=== PATIENT | male | born 1950 | race Caucasian/White ===

== ENCOUNTER 2018-01-20 08:25 | Day surgery (SDC) | payer MEDICARE, BC ==
[~2018-01-20 08:25] MED LIST: KETOROLAC TROMETHAMINE 0.45% 4 DROP/0.4 ML DROPERETTE OS PRN
[2018-01-20] MEDS: TETRACAINE HCL 0.5% OPH SOLN 0.6 ML DROPERETTE OS PRN ×4 (09:18→09:58)
[2018-01-20] MEDS: CYCLOPENTOLATE 0.2%/PHENYLEPHRINE 1% OPH SOLN 2 ML OS PRN ×3 (09:19→09:44)
[2018-01-20] MEDS: TROPICAMIDE 1% OPH SOLN 3 ML OS PRN ×3 (09:19→09:44)
[2018-01-20] MEDS: BESIFLOXACIN HCL 0.6% OPH SUSP 5 ML BOTTLE OS PRN ×4 (09:20→10:19)
[2018-01-20] MEDS ORDERED: ALBUTEROL SULFATE 0.083% NEB 2.5 MG/3 ML AMPUL NEB ONE (09:41)
[2018-01-20] MEDS ORDERED: FENTANYL CITRATE INJ/PF 100 MCG/2 ML AMPUL ONE (09:42)
[2018-01-20] MEDS ORDERED: MIDAZOLAM 2 MG/2 ML INJ ONE (09:42)
[2018-01-20] MEDS: LIDOCAINE 1% INJ-PF (10 MG/ML) 30 ML SDV ONE ×2 (10:08)
[2018-01-20] MEDS: CHONDR SU A NA/HYALUR INTRAOC KIT (SURGICARE) ONE ×2 (10:08)
[2018-01-20] MEDS: EPINEPHRINE INJ/PF 1 MG/1 ML AMPULE ONE ×2 (10:08)
[2018-01-20] MEDS: TOBRAMYCIN SULFATE/DEXAMETH OPH OINTMENT 3.5 GM ONE ×2 (10:19)
== END 2018-01-20 11:07 | disposition home or self-care (01) ==
LOC: SC 08:25
PROVIDERS: ATTEND Ophthalmology
DX: H25.12 Age-related nuclear cataract, left eye (principal); F17.210 Nicotine dependence, cigarettes, uncomplicated; M19.90 Unspecified osteoarthritis, unspecified site; I10 Essential (primary) hypertension; E11.9 Type 2 diabetes mellitus without complications; G47.30 Sleep apnea, unspecified; Z86.14 Personal history of Methicillin resistant Staphylococcus aureus infection; Z79.899 Other long term (current) drug therapy; Z79.84 Long term (current) use of oral hypoglycemic drugs
CPT/HCPCS: 82962; V2630; J2250; J3490 ×3; A9270 ×2; J0171; J3010; 142

== ENCOUNTER 2018-03-22 10:30 | Day surgery (SDC) | payer MEDICARE, BC ==
[~2018-03-22 10:30] MED LIST changes: -KETOROLAC TROMETHAMINE 0.45% 4 DROP/0.4 ML DROPERETTE OS PRN; +PROPOFOL INJ 200 MG/20 ML VIAL IV ONE
[2018-03-22] MEDS ORDERED: PROPOFOL INJ 200 MG/20 ML VIAL IV ONE (12:06)
[2018-03-22 12:59] VITALS: BP 132/71
--- NOTE | 2018-03-22 13:42 | Operative Report ---
Operative Report DATE OF SURGERY: 03/22/18 Operative Report: The risks, benefits and alternatives of the procedure including risks of bleeding, perforation requiring surgery are explained to the patient in detail and informed consent was obtained. Patient was taken back to the endoscopy suite and placed in the left, lateral decubital position. Timeout was called. Propofol medications administered. A rectal examination is done which did not reveal any masses, tears or fissures. An Olympus videoscope was inserted into the patient's rectum. The scope was then carefully advanced all the way to the cecum. The cecum was identified by the usual anatomical landmarks including the ileocecal valve as well as the appendiceal office. Photodocumentation was obtained. The patient has a spastic colon. Prep was good. Photodocumentation is obtained. The scope was then sequentially pullback via the various segments of the colon including the ascending colon, hepatic flexure, transverse colon, splenic flexure, descending colon and finally into the rectosigmoid portions of the colon. Retroflexion maneuver is performed. PREOPERATIVE DIAGNOSIS: Personal history of polyps. Has not had a colonoscopy in the past 10 years POSTOPERATIVE DIAGNOSIS: Multiple polyps all removed via snare polypectomy. Internal hemorrhoids. Extended procedure time greater than 45 minutes OPERATION: Colonoscopy with snare polypectomy SURGEON: OLY DOUGLASS ANESTHESIA: LMAC TISSUE REMOVED OR ALTERED: As noted above. COMPLICATIONS: None. ESTIMATED BLOOD LOSS: None. INTRAOPERATIVE FINDINGS: Multiple polyps throughout the colon. Noted to have at least half a dozen polyps in the rectum. Several in sigmoid area. The polyps also present in the descending colon as well as the transverse colon area. Patient has a very spastic colon. PROCEDURE: Patient tolerated procedure well. No immediate postprocedure complications are noted. Patient discharged in good condition. Discharge date 03/22/2018. Discharge diet: Regular. Discharge activity: Regular. 2-3 week follow-up to discuss findings. Patient is instructed to call the office or proceed to the emergency room should there be any further problems or questions. I would recommend a one-year surveillance colonoscopy.
== END 2018-03-22 12:50 | disposition home or self-care (01) ==
LOC: END 10:30
PROVIDERS: ATTEND Internal Medicine Gastroenterology
DX: Z12.11 Encounter for screening for malignant neoplasm of colon (principal); D12.3 Benign neoplasm of transverse colon; D12.4 Benign neoplasm of descending colon; D12.7 Benign neoplasm of rectosigmoid junction; K63.5 Polyp of colon; Z86.010 Personal history of colon polyps; K58.9 Irritable bowel syndrome, unspecified; K64.8 Other hemorrhoids; E11.9 Type 2 diabetes mellitus without complications; E78.5 Hyperlipidemia, unspecified; M19.90 Unspecified osteoarthritis, unspecified site; F17.210 Nicotine dependence, cigarettes, uncomplicated; G47.30 Sleep apnea, unspecified; Z86.14 Personal history of Methicillin resistant Staphylococcus aureus infection; Z79.84 Long term (current) use of oral hypoglycemic drugs; Z79.899 Other long term (current) drug therapy; Z79.51 Long term (current) use of inhaled steroids
CPT/HCPCS: 45385; 82962; 88305 ×2; J2704; 812

== ENCOUNTER 2018-10-03 00:31 | Emergency (ER) | payer MEDICARE, BC ==
[2018-10-03 00:37] VITALS: BP 168/84
[2018-10-03] MEDS ORDERED: KETOROLAC TROMETHAMINE 60 MG/2 ML SDV IM ONE (00:48)
[2018-10-03] MEDS ORDERED: LIDOCAINE 5% (700 MG) TRANSDERMAL ADH..PATCH TP ONE (00:48)
[2018-10-03] MEDS ORDERED: ACETAMINOPHEN 325 MG TABLET PO ONE (00:48)
--- NOTE | 2018-10-03 00:59 | ER Document Report ---
ED General - General Chief Complaint: Hip Pain Stated Complaint: LEFT HIP PAIN Time Seen by Provider: 10/03/18 00:44 Notes: Patient is a 68-year-old male who presents with 2 weeks of left hip pain. The patient states for the past several years he has had an mitten of left hip discomfort that usually last for 1-2 days and then spontaneously resolves. He states however that over the past 2 weeks his pain has been persistent. It is described as a dull, throbbing, aching pain to his left hip worsened with walking and standing. He has not trying to improve his pain. No obvious trigger for the episode of pain. He has not seen his general doctor regarding today's concerns. Denies any trauma to the area. No weakness or numbness in the leg. Denies any falls or inability to walk. No recent weight loss. No swelling or erythema to the hip. No fever or constitutional symptoms. TRAVEL OUTSIDE OF THE [place] IN LAST 30 DAYS: No - Related Data Allergies/Adverse Reactions: tamsulosin [Tamsulosin] Allergy (Verified 03/22/18 10:33) URINARY FREQUENCY Past Medical History - General Information source: Patient - Social History Smoking Status: Never Smoker Frequency of alcohol use: None Drug Abuse: None Lives with: Family Family History: DM, Hyperlipidemia, Hypertension - Past Medical History Cardiac Medical History: Reports: Hx Hypertension Denies: Hx Heart Attack Pulmonary Medical History: Reports: Hx COPD Denies: Hx Asthma, Hx Bronchitis, Hx Pneumonia, Hx Tuberculosis Neurological Medical History: Denies: Hx Cerebrovascular Accident, Hx Seizures Endocrine Medical History: Reports: Hx Diabetes Mellitus Type 2 GI Medical History: Denies: Hx Hepatitis, Hx Hiatal Hernia, Hx Ulcer Musculoskeletal Medical History: Reports Hx Musculoskeletal Deformity, Reports Hx Musculoskeletal Trauma Skin Medical History: Reports Hx Cellulitis, Reports Hx MRSA Infectious Medical History: Reports: Hx MRSA. Denies: Hx Hepatitis Past Surgical History: Reports: Hx Orthopedic Surgery - right knee. Denies: Hx Open Heart Surgery, Hx Pacemaker - Immunizations Immunizations up to date: No Hx Diphtheria, Pertussis, Tetanus Vaccination: No Hx Pneumococcal Vaccination: 11/02/16 Review of Systems - Review of Systems Notes: Constitutional: Negative for fever. HENT: Negative for sore throat. Eyes: Negative for visual changes. Cardiovascular: Negative for chest pain. Respiratory: Negative for shortness of breath. Gastrointestinal: Negative for abdominal pain, vomiting or diarrhea. Genitourinary: Negative for dysuria. Musculoskeletal: Positive for left hip pain Skin: Negative for rash. Neurological: Negative for headaches, weakness or numbness. 10 point ROS negative except as marked above and in HPI. Physical Exam - Vital signs Vitals: Temp Pulse Resp BP Pulse Ox 97.6 F 87 22 H 168/84 H 96 10/03/18 00:32 10/03/18 00:32 10/03/18 00:32 10/03/18 00:32 10/03/18 00:32 Interpretation: Hypertensive Notes: PHYSICAL EXAMINATION: GENERAL: Well-appearing, well-nourished and in no acute distress. HEAD: Atraumatic, normocephalic. EYES: Pupils equal round and reactive to light, extraocular movements intact, sclera anicteric, conjunctiva are normal. ENT: nares patent, oropharynx clear without exudates. Moist mucous membranes. NECK: Normal range of motion, supple without lymphadenopathy LUNGS: Breath sounds clear to auscultation bilaterally and equal. No wheezes rales or rhonchi. HEART: Regular rate and rhythm without murmurs ABDOMEN: Soft, nontender, normoactive bowel sounds. No guarding, no rebound. No masses appreciated. EXTREMITIES: Normal range of motion, mild pain with external rotation of the left hip but no pain with axial loading or internal rotation left hip. No pitting or edema. No cyanosis. Back: No midline spinal tenderness, step-offs or deformities. NEUROLOGICAL: 5 out of 5 strength both distally and proximally bilateral lower extremities. 2+ patellar reflexes bilaterally. No clonus. Sensation grossly intact in the bilateral lower extremities. Patient is able to ambulate without difficulty. PSYCH: Normal mood, normal affect. SKIN: Warm, Dry, normal turgor, no rashes or lesions noted. Course - Re-evaluation Re-evalutation: 10/03/18 01:03 Patient presents with acute on chronic left hip discomfort. Appears very well on exam, vitals notable only for hypertension. Physical examination is broadly unremarkable with the exception of pain with external rotation of the left hip. X-ray does not show any acute findings. The patient has not had any acute trauma to the area. At this suspect likely chronic arthritic changes versus musculoskeletal strain. I have advised close outpatient follow-up with his primary care physician and possible orthopedic surgery as well. Pain has improved after receiving Toradol and Tylenol here in the emergency department. At this time will discharge with return precautions and follow-up recommendations. Verbal discharge instructions given a the bedside and opportunity for questions given. Medication warnings reviewed. Patient is in agreement with this plan and has verbalized understanding of return precautions and the need for primary care follow-up in the next 24-72 hours. - Vital Signs Vital signs: Temp Pulse Resp BP Pulse Ox 97.6 F 87 22 H 168/84 H 96 10/03/18 00:32 10/03/18 00:32 10/03/18 00:32 10/03/18 00:32 10/03/18 00:32 - Diagnostic Test Radiology reviewed: Image reviewed, Reports reviewed Radiology results interpreted by me: 10/03/18 01:04 Left hip x-ray: No acute fracture or dislocation Discharge - Discharge Clinical Impression: Left hip pain Condition: Good Disposition: HOME, SELF-CARE Additional Instructions: Your x-ray does not show any acute fracture today. You likely have chronic arthritic changes versus a musculoskeletal strain. Take naproxen 500 mg every 12 hours as needed for pain. He may also take Tylenol 1000 mg every 6 hours in addition to naproxen. Continue to apply ice to the area is much your able. Please follow-up with your primary care physician if you do not have improving your symptoms in the next 1-2 weeks. Please return immediately if you develop weakness, numbness, spreading redness from the area, or any other symptoms that are concerning to you. Prescriptions: Naproxen 500 mg PO BID PRN #14 tablet PRN Reason: Referrals: YARON LI PA-C [Primary Care Provider] - Follow up in 3-5 days
--- NOTE | 2018-10-03 01:20 | RADIOLOGY REPORT (SQ) ---
EXAM DESCRIPTION: XR HIP 2 OR MORE VIEWS COMPLETED DATE/TME: 10/03/2018 00:44 CLINICAL HISTORY: 68 years, Male, pain COMPARISON: None. NUMBER OF VIEWS: 3 TECHNIQUE: AP pelvis and frog-leg view left hip LIMITATIONS: None. FINDINGS: Osteopenia. Negative for acute fracture or dislocation. Mild degenerative change of the hips bilaterally. Soft tissues are unremarkable IMPRESSION: Osteopenia with mild degenerative change copyright 2010 [employer]- All Rights Reserved
== END 2018-10-03 01:58 | disposition home or self-care (01) ==
LOC: ER 00:31
DX: M25.552 Pain in left hip (principal); I10 Essential (primary) hypertension; J44.9 Chronic obstructive pulmonary disease, unspecified; E11.9 Type 2 diabetes mellitus without complications; Z86.14 Personal history of Methicillin resistant Staphylococcus aureus infection
CPT/HCPCS: 99283; 96372; 73502; A9270; J1885

== ENCOUNTER 2018-12-27 10:12 | Inpatient (IN) | payer MEDICARE, BC ==
[2018-12-27] MEDS ORDERED: ALBUTEROL SULFATE 0.083% NEB 2.5 MG/3 ML AMPUL NEB ONE (10:34)
[2018-12-27] MEDS ORDERED: IPRATROPIUM/ALBUTEROL 0.5-2.5 MG/3 ML AMPUL NEB ONE (10:34)
[2018-12-27] MEDS ORDERED: PREDNISONE 20 MG TABLET PO ONE (10:35)
--- NOTE | 2018-12-27 10:37 | ER Document Report ---
ED Medical Screen (RME) - General Chief Complaint: Shortness Of Breath Stated Complaint: DIFFICULTY BREATHING Time Seen by Provider: 12/27/18 10:34 Primary Care Provider: YARON LI PA-C [Primary Care Provider] - Follow up as needed Mode of Arrival: Ambulatory Information source: Patient, [facility] Records Notes: 68-year-old male with COPD, diabetes, hypertension presents with 2 weeks of progressively worsening shortness of breath, chest tightness, productive cough with yellow sputum and subjective fever. Patient does continue to smoke. I have greeted and performed a rapid initial assessment of this patient. A comprehensive ED assessment and evaluation of the patient, analysis of test results and completion of medical decision making process we will be contacted by additional ED providers. PHYSICAL EXAMINATION: Vital signs reviewed GENERAL: Well-appearing, well-nourished and in no acute distress. LUNGS: Diminished breath sounds with expiratory wheezing. Musculoskeletal: Normal range of motion NEUROLOGICAL: Normal speech, normal gait. PSYCH: Normal mood, normal affect. SKIN: Warm, Dry, normal turgor, no rashes or lesions noted. TRAVEL OUTSIDE OF THE [place] IN LAST 30 DAYS: No - HPI Onset: Other Onset/Duration: Gradual, Persistent Quality of pain: Other - Chest tightness Associated Symptoms: Cough (productive), Fever, Shortness of breath Exacerbated by: Coughing Relieved by: Denies Similar symptoms previously: Yes Recently seen / treated by doctor: Yes - Related Data Smoking: Cigarettes Frequency of alcohol use: None Drug Abuse: None Allergies/Adverse Reactions: tamsulosin [Tamsulosin] Allergy (Verified 12/27/18 10:14) URINARY FREQUENCY Past Medical History - Social History Chew tobacco use (# tins/day): No Drug Abuse: None - Past Medical History Cardiac Medical History: Reports: Hx Hypertension Denies: Hx Heart Attack Pulmonary Medical History: Reports: Hx COPD Denies: Hx Asthma, Hx Bronchitis, Hx Pneumonia, Hx Tuberculosis Neurological Medical History: Denies: Hx Cerebrovascular Accident, Hx Seizures Endocrine Medical History: Reports: Hx Diabetes Mellitus Type 2 Renal/ Medical History: Denies: Hx Peritoneal Dialysis GI Medical History: Denies: Hx Hepatitis, Hx Hiatal Hernia, Hx Ulcer Musculoskeltal Medical History: Reports Hx Musculoskeletal Deformity, Reports Hx Musculoskeletal Trauma Skin Medical History: Reports Hx Cellulitis, Reports Hx MRSA Infectious Medical History: Reports: Hx MRSA. Denies: Hx Hepatitis Past Surgical History: Reports: Hx Orthopedic Surgery - right knee. Denies: Hx Open Heart Surgery, Hx Pacemaker - Immunizations Immunizations up to date: No Hx Diphtheria, Pertussis, Tetanus Vaccination: No Influenza Administration Date for 08/2017 - 12/2017 Season: 08/02/17 Physical Exam - Vital signs Vitals: Temp Pulse Resp BP Pulse Ox 97.7 F 116 H 22 H 171/81 H 93 12/27/18 10:18 12/27/18 10:18 12/27/18 10:18 12/27/18 10:18 12/27/18 10:18 Course - Vital Signs Vital signs: Temp Pulse Resp BP Pulse Ox 97.7 F 116 H 22 H 171/81 H 93 12/27/18 10:18 12/27/18 10:18 12/27/18 10:18 12/27/18 10:18 12/27/18 10:18 Doctor's Discharge - Discharge Referrals: YARON LI PA-C [Primary Care Provider] - Follow up as needed
--- NOTE | 2018-12-27 10:55 | RADIOLOGY REPORT (SQ) ---
EXAM DESCRIPTION: CHEST 2 VIEWS COMPLETED DATE/TIME: 12/27/2018 10:46 am REASON FOR STUDY: sob COMPARISON: 01/10/2009 EXAM PARAMETERS: NUMBER OF VIEWS: two views TECHNIQUE: Digital Frontal and Lateral radiographic views of the chest acquired. RADIATION DOSE: NA LIMITATIONS: none FINDINGS: LUNGS AND PLEURA: No opacities, masses or pneumothorax. No pleural effusion. MEDIASTINUM AND HILAR STRUCTURES: No masses or contour abnormalities. HEART AND VASCULAR STRUCTURES: Heart normal size. No evidence for failure. BONES: No acute findings. HARDWARE: None in the chest. OTHER: No other significant finding. IMPRESSION: NO ACUTE RADIOGRAPHIC FINDING IN THE CHEST. TECHNICAL DOCUMENTATION: JOB ID: [id number] [employer]- All Rights Reserved Reading location - IP/workstation name: [email or web address]
[2018-12-27 11:15] LABS: ABSOLUTE MONOCYTES (AUTO) 2.3 10^3/uL (0.1-1.4); ABSOLUTE NEUT (AUTO) 16.1 10^3/uL (1.7-8.2); BASOPHILS % (AUTO) 0.2 % (0-2); HEMATOCRIT 54.9 % (37.9-51.0); HEMOGLOBIN 18.5 g/dL (13.5-17.0); LYMPHOCYTES % (AUTO) 5.2 % (13-45); MEAN CORPUSCULAR HGB CONC 33.8 g/dL (32.0-36.0); MEAN CORPUSCULAR VOLUME 92 fl (80-97); MONOCYTES % (AUTO) 11.7 % (3-13); PLATELET COUNT 180 10^3/uL (150-450); RED BLOOD COUNT 5.97 10^6/uL (4.35-5.55); RED CELL DISTRIBUTION WIDTH 14.7 % (11.5-14.0); SEGMENTED NEUTROPHILS % (AUTO) 82.9 % (42-78); TOTAL CELLS COUNTED % (AUTO) 100 %; WHITE BLOOD COUNT 19.4 10^3/uL (4.0-10.5)
[2018-12-27 11:22] LABS: VENOUS BLOOD BASE EXCESS 3.6 mmol/L; VENOUS BLOOD HCO3 32.2 mmol/L (20-32); VENOUS BLOOD PH 7.33 (7.30-7.42)
[2018-12-27 11:39] LABS: ALANINE AMINOTRANSFERASE 14 U/L (21-72); ALBUMIN 4.3 g/dL (3.5-5.0); ALKALINE PHOSPHATASE 101 U/L (38-126); ANION GAP 12 (5-19); ASPARTATE AMINO TRANSFERASE 20 U/L (17-59); BILIRUBIN,TOTAL 1.5 mg/dL (0.2-1.3); BLOOD UREA NITROGEN 22 mg/dL (7-20); CALCIUM 9.5 mg/dL (8.4-10.2); CARBON DIOXIDE 32 mmol/L (22-30); CHLORIDE 100 mmol/L (98-107); GLUCOSE 183 mg/dL (75-110); POTASSIUM 4.1 mmol/L (3.6-5.0); SODIUM 143.5 mmol/L (137-145); TOTAL PROTEIN 7.9 g/dL (6.3-8.2)
--- NOTE | 2018-12-27 13:34 | ER Document Report ---
ED General - General Chief Complaint: Shortness Of Breath Stated Complaint: DIFFICULTY BREATHING Time Seen by Provider: 12/27/18 10:34 Primary Care Provider: YARON LI PA-C [Primary Care Provider] - Follow up as needed Mode of Arrival: Ambulatory TRAVEL OUTSIDE OF THE [place] IN LAST 30 DAYS: No - HPI Notes: Patient presents emergency department for evaluation of cough and difficulty breathing. It has been going on for 2 weeks and his symptoms continue to worsen. He denies any fevers. No nausea or vomiting. He has no pain. He states this all feels like his COPD. He has had some nasal congestion. He has no orthopnea. Mild dyspnea with exertion. He has been using his breathing treatments at home without any significant relief. Is not currently on steroids. - Related Data Allergies/Adverse Reactions: tamsulosin [Tamsulosin] Allergy (Verified 12/27/18 10:14) URINARY FREQUENCY Past Medical History - General Information source: Patient, [facility] Records - Social History Smoking Status: Current Every Day Smoker Chew tobacco use (# tins/day): No Frequency of alcohol use: None Drug Abuse: None Family History: DM, Hyperlipidemia, Hypertension Patient has suicidal ideation: No Patient has homicidal ideation: No - Past Medical History Cardiac Medical History: Reports: Hx Hypertension Denies: Hx Heart Attack Pulmonary Medical History: Reports: Hx COPD Denies: Hx Asthma, Hx Bronchitis, Hx Pneumonia, Hx Tuberculosis Neurological Medical History: Denies: Hx Cerebrovascular Accident, Hx Seizures Endocrine Medical History: Reports: Hx Diabetes Mellitus Type 2 Renal/ Medical History: Denies: Hx Peritoneal Dialysis GI Medical History: Denies: Hx Hepatitis, Hx Hiatal Hernia, Hx Ulcer Musculoskeletal Medical History: Reports Hx Musculoskeletal Deformity, Reports Hx Musculoskeletal Trauma Skin Medical History: Reports Hx Cellulitis, Reports Hx MRSA Infectious Medical History: Reports: Hx MRSA. Denies: Hx Hepatitis Past Surgical History: Reports: Hx Orthopedic Surgery - right knee. Denies: Hx Open Heart Surgery, Hx Pacemaker - Immunizations Immunizations up to date: No Hx Diphtheria, Pertussis, Tetanus Vaccination: No Hx Pneumococcal Vaccination: 11/02/16 Review of Systems - Review of Systems Constitutional: No symptoms reported EENT: No symptoms reported Cardiovascular: No symptoms reported Respiratory: Cough, Short of breath Gastrointestinal: No symptoms reported Genitourinary: No symptoms reported Musculoskeletal: No symptoms reported Skin: No symptoms reported Neurological/Psychological: No symptoms reported Physical Exam - Vital signs Vitals: Temp Pulse Resp BP Pulse Ox 97.7 F 116 H 22 H 171/81 H 93 12/27/18 10:18 12/27/18 10:18 12/27/18 10:18 12/27/18 10:18 12/27/18 10:18 - Notes Notes: Vital signs reviewed, please refer to chart. Patient is a mild amount of distress secondary to difficulty breathing. Patient is normocephalic, atraumatic. Pupils equal round, reactive to light. Neck is supple without meningismus. Heart is regular rate and rhythm. Lungs reveal increased work of breathing, supraclavicular retractions. He has expiratory wheezes throughout. Increased respiratory rate. Abdomen is soft, nontender, normoactive bowel sounds throughout. Extremities without cyanosis, clubbing. Peripheral pulses are equal. Skin is warm and dry. Patient is awake, alert, neurological exam is nonfocal. Course - Re-evaluation Re-evalutation: 12/27/18 13:32 Patient presents emergency department for evaluation of difficulty breathing. Triage orders were placed. The patient was receiving a breathing treatment at the time of my initial evaluation. He is feeling slowly improved throughout the course of his stay. Chest x-ray failed to reveal any acute cardia pulmonary disease. Laboratory vesication did reveal an elevated white blood cell count. His troponin was only indeterminately elevated. I did reiterate with the patient that he has absolutely no chest pain and this continued to be the case. EKG shows an incomplete right bundle branch block but no acute ST changes. During the course of his stay he would have coughing fits. His heart rate was elevated to the 130s. He had no symptoms with this. He had no palpitations, no chest pain. He continued to feel steadily improved throughout the course of his stay. We will admit the patient for further care. - Vital Signs Vital signs: Temp Pulse Resp BP Pulse Ox 97.7 F 106 H 23 H 122/39 L 91 L 12/27/18 10:18 12/27/18 13:15 12/27/18 13:02 12/27/18 13:02 12/27/18 13:15 - Laboratory Result Diagrams: 12/27/18 10:58 12/27/18 10:58 Laboratory results interpreted by me: 12/27/18 12/27/18 12/27/18 10:58 10:58 10:58 WBC 19.4 H RBC 5.97 H Hgb 18.5 H Hct 54.9 H RDW 14.7 H Seg Neutrophils % 82.9 H Lymphocytes % 5.2 L Absolute Neutrophils 16.1 H Absolute Monocytes 2.3 H VBG HCO3 32.2 H Carbon Dioxide 32 H BUN 22 H Glucose 183 H Total Bilirubin 1.5 H Direct Bilirubin 1.0 H ALT 14 L - Diagnostic Test Radiology reviewed: Reports reviewed - No acute cardiopulmonary disease - EKG Interpretation by Me Additional EKG results interpreted by me: 12/27/18 13:33 Sinus tachycardia with a rate of 119 bpm. PVCs. Incomplete right bundle branch block, no acute ST changes concerning for ischemia or infarction. This is changed from prior study in August of 2012. Discharge - Discharge Clinical Impression: COPD with acute exacerbation, Hypoxia Condition: Stable Disposition: ADMITTED INPATIENT Admitting Provider: Hospitalist - [facility] Unit Admitted: Telemetry Referrals: YARON LI PA-C [Primary Care Provider] - Follow up as needed
[2018-12-27] MEDS ORDERED: NORMAL SALINE 1000 ML 1,000 ML IV PRN (14:27)
--- NOTE | 2018-12-27 14:50 | PDOC H&P ---
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 Denies any sick contact, got his flu shot and pneumonia vaccine. Denies any fever, chills, nausea, vomiting, diarrhea, constipation, urinary symptoms, orthopnea or paroxysmal nocturnal dyspnea, lower extremity swelling, or any urinary symptoms. In ED he was found to have leukocytosis with no bandemia, saturating 89% 4 L nasal cannula. Chest x-ray did not show any acute abnormalities. Hospitalist was consulted for admission. Past Medical History Cardiac Medical History: Reports: Hypertension Denies: Myocardial Infarction Pulmonary Medical History: Reports: Chronic Obstructive Pulmonary Disease (COPD) Denies: Asthma, Bronchitis, Pneumonia, Tuberculosis Neurological Medical History: Denies: Seizures Endocrine Medical History: Reports: Diabetes Mellitus Type 2 GI Medical History: Denies: Hepatitis, Hiatal Hernia Hematology: Denies: Anemia, Sickle Cell Disease Infectious Medical History: Reports: Methicillin-Resistant Staph Aureus Past Surgical History Past Surgical History: Reports: Orthopedic Surgery - right knee Denies: Pacemaker Social History Smoking Status: Current Every Day Smoker Hx Recreational Drug Use: No Hx Prescription Drug Abuse: No Family History Family History: DM, Hyperlipidemia, Hypertension Parental Family History Reviewed: Yes Children Family History Reviewed: Yes Sibling(s) Family History Reviewed.: Yes Medication/Allergy Home Medications: Lisinopril [Prinivil 10 mg Tablet] 40 mg PO DAILY 08/19/12 Metformin HCl [Glucophage 500 Mg Tablet] 1,000 mg PO BID 08/19/12 Glimepiride 1 mg PO BID 01/20/18 Metoprolol Succinate 25 mg PO DAILY 01/20/18 Naproxen 500 mg PO BID PRN #14 tablet 10/03/18 Allergies/Adverse Reactions: tamsulosin [Tamsulosin] Allergy (Verified 12/27/18 10:14) URINARY FREQUENCY Review of Systems Review of Systems: As per HPI. Physical Exam Vital Signs: Temp Pulse Resp BP Pulse Ox 97.7 F 106 H 28 H 145/90 H 92 12/27/18 10:18 12/27/18 13:15 12/27/18 14:01 12/27/18 14:01 12/27/18 14:01 Intake & Output 12/26/18 12/27/18 12/28/18 06:59 06:59 06:59 Weight 100.5 kg General appearance: PRESENT: mild distress, obese Neck exam: ABSENT: carotid bruit, JVD, lymphadenopathy, thyromegaly Respiratory exam: PRESENT: decreased breath sounds, prolonged expiratory phas, wheezes. ABSENT: rales, rhonchi Cardiovascular exam: PRESENT: RRR. ABSENT: diastolic murmur, rubs, systolic murmur GI/Abdominal exam: PRESENT: normal bowel sounds, soft. ABSENT: distended, guarding, mass, organolmegaly, rebound, tenderness Extremities exam: PRESENT: full ROM. ABSENT: calf tenderness, clubbing, pedal edema Neurological exam: PRESENT: alert, awake, oriented to person, oriented to place, oriented to time, oriented to situation, CN II-XII grossly intact. ABSENT: motor sensory deficit Results Laboratory Results: 12/27/18 10:58 12/27/18 10:58 12/27/18 12/27/18 12/27/18 10:58 10:58 10:58 WBC 19.4 H RBC 5.97 H Hgb 18.5 H Hct 54.9 H MCV 92 MCH 31.0 MCHC 33.8 RDW 14.7 H Plt Count 180 Seg Neutrophils % 82.9 H Lymphocytes % 5.2 L Monocytes % 11.7 Eosinophils % 0.0 Basophils % 0.2 Absolute Neutrophils 16.1 H Absolute Lymphocytes 1.0 Absolute Monocytes 2.3 H Absolute Eosinophils 0.0 Absolute Basophils 0.0 VBG pH 7.33 VBG pCO2 62.0 VBG HCO3 32.2 H VBG Base Excess 3.6 Sodium 143.5 Potassium 4.1 Chloride 100 Carbon Dioxide 32 H Anion Gap 12 BUN 22 H Creatinine 0.72 Est GFR ( Amer) > 60 Est GFR (Non-Af Amer) > 60 Glucose 183 H Calcium 9.5 Total Bilirubin 1.5 H AST 20 ALT 14 L Alkaline Phosphatase 101 Total Protein 7.9 Albumin 4.3 12/27/18 10:58 Troponin I 0.073 Impressions: Chest X-Ray 12/27/18 10:34 IMPRESSION: NO ACUTE RADIOGRAPHIC FINDING IN THE CHEST. Assessment & Plan - Diagnosis (1) Acute respiratory failure with hypoxia Is this a current diagnosis for this admission?: Yes Plan: Mild respiratory distress, tachypnea with O2 saturation less than 90%. Not on home oxygen. Pending ABG. Likely due to COPD exacerbation and pneumonia. 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 (2) Pneumonia Is this a current diagnosis for this admission?: Yes Plan: Likely community-acquired pneumonia caused by strep pneumo. Empiric IV antibiotics. Sputum and blood culture. (3) HTN (hypertension) Is this a current diagnosis for this admission?: No Plan: Euvolemic. Restart home meds. Adjust dosage as needed. Outpatient PCP follow- up. (4) Diabetes Is this a current diagnosis for this admission?: No Plan: Hold oral hypoglycemics. Diabetic diet, long-acting insulin, pre-meal insulin, sliding scale insulin, adjust dosage as needed. Hemoglobin A1c. (5) Tobacco abuse Is this a current diagnosis for this admission?: Yes Plan: Counseled on quitting. NicoDerm patch. (6) Obesity Is this a current diagnosis for this admission?: Yes Plan: Diet and lifestyle modification. (7) ALEJANDRA (obstructive sleep apnea) Is this a current diagnosis for this admission?: No Plan: Continue nocturnal CPAP. Outpatient pulmonary follow-up. Recommend weight loss. (8) Erythrocytosis Is this a current diagnosis for this admission?: Yes Plan: Likely due to chronic hypoxemia caused by underlying COPD and ALEJANDRA done by recent dehydration as patient is stating he has reduced his p.o. intake recently due to worsening cough and shortness of breath. DC tomorrow. Treat underlying causes.
[2018-12-27] MEDS ORDERED: LEVOFLOXACIN 750 MG TABLET PO SCH (15:00)
--- NOTE | 2018-12-27 15:21 | RADIOLOGY REPORT (SQ) ---
EXAM DESCRIPTION: CTA CHEST COMPLETED DATE/TIME: 12/27/2018 3:08 pm REASON FOR STUDY: SOB COMPARISON: 03/18/2016 TECHNIQUE: CT scan of the chest performed using helical scanning technique with dynamic intravenous contrast injection. Images reviewed with lung, soft tissue and bone windows. Reconstructed coronal and sagittal MPR images reviewed. Additional 3 dimensional post-processing performed to develop Maximal Intensity Projection images (MT P). All images stored on PACS. All CT scanners at this facility use dose modulation, iterative reconstruction, and/or weight based d osing when appropriate to reduce radiation dose to as low as reasonably achievable (ALARA). [facility]: Dose Right [facility]: CareDose [facility]: Dose Right [facility]: Teradose 4D [facility]: Telly CONTRAST TYPE AND DOSE: contrast/concentration: Isovue 350.00 mg/ml; Total Contrast Delivered: 84.0 ml; Total Saline Delivered: 90.0 ml Contrast bolus optimized for the pulmonary arteries. Not diagnostic for the aorta. RENAL FUNCTION: GFR > 60. RADIATION DOSE: CT Rad equipment meets quality standard of care and radiation dose reduction techniq ues were employed. CTDIvol: 29.6 - 33.1 mGy. DLP: 1203 mGy-cm. . LIMITATIONS: None. FINDINGS: LUNGS AND PLEURA: Patchy subsegmental airspace opacity in the lingula and dependent left l ower lobe most likely due to atelectasis. No effusions. AORTA AND GREAT VESSELS: No aneurysm. Contrast bolus not optimized for the aorta. HEART: No pericardial effusion. PULMONARY ARTERIES: No emboli visualized in the main pulmonary arteries or the segmental branches. HILAR AND MEDIASTINAL STRUCTURES: No identified masses or abnormal nodes. HARDWARE: None in the chest. UPPER ABDOMEN: No acute findings. Limited exam. THYROID AND OTHER SOFT TISSUES: No masses. No adenopathy. BONES: No acute or significant finding. 3D MIPS: Confirm above findings. OTHER: No other significant finding. IMPRESSION: 1. No PE. 2. Atelectasis. No infiltrate. COMMENT: Quality ID # [id number]: Final reports with documentation of one or more dose reduction techniques (e.g., Automated exposure control, adjustment of the mA and/or kV according to patient size, use of iterative reconstruction technique) TECHNICAL DOCUMENTATION: JOB ID: [id number] [employer]- All Rights Reserved Reading location - IP/workstation name: [email or web address]
[2018-12-27 15:27] LABS: ARTERIAL BLOOD BASE EXCESS 3.1 mmol/L; ARTERIAL BLOOD H2CO3 2.21 mmol/L (1.05-1.35); ARTERIAL BLOOD HCO3 33.1 mmol/L (20-24); ARTERIAL BLOOD PH 7.27 (7.35-7.45); ARTERIAL BLOOD PO2 66.9 mmHg (80-100); ARTERIAL BLOOD TOTAL CO2 35.4 mmol/L (23-27)
[2018-12-27 15:39] LABS: ARTERIAL BLOOD PCO2 73.3 mmHg (35-45)
[2018-12-27 15:47] LABS: ARTERIAL BLOOD FIO2 4L
[2018-12-27] MEDS: HEPARIN SOD (PORCINE) 5,000 UNIT/ML 1 ML SYRINGE SUBCUT SCH ×2 (17:10→22:55)
[2018-12-27] MEDS: LEVOFLOXACIN 750 MG/D5W RTU 750 MG/150 ML RTUPB IV SCH (17:10)
[2018-12-27] MEDS: METOPROLOL SUCCINATE 25 MG TAB.SR.24H PO SCH (17:11)
[2018-12-27] MEDS: GUAIFENESIN 600 MG TABLET.SA PO SCH (17:11)
[2018-12-27] MEDS: LANSOPRAZOLE 30 MG TAB.RAP.DR PO SCH (17:11)
[2018-12-27] MEDS: LISINOPRIL 10 MG TABLET PO SCH (17:11)
[2018-12-27] MEDS ORDERED: DEXTROSE 50%-WATER SYRINGE 25 GM/50 ML DOSE IV PRN (18:30)
[2018-12-27] MEDS ORDERED: GLUCAGON,HUMAN RECOMB 1 MG INJ IM PRN ×2 (18:30→18:57)
[2018-12-27] MEDS ORDERED: DEXTROSE 50%-WATER SYRINGE 12.5 GM/25 ML DOSE IV PRN (18:30)
[2018-12-27] MEDS ORDERED: DEXTROSE 40% GEL 15 GM TUBE PO PRN ×3 (18:30→18:57)
[2018-12-27] MEDS ORDERED: DEXTROSE 40% GEL 15 GM TUBE X 2 PO PRN (18:30)
[2018-12-27] MEDS: TIOTROPIUM BROMIDE DPI 5 CAP/KIT (18 MCG/CAP) IH SCH (18:31)
[2018-12-27] MEDS: NICOTINE 21 MG/24 HR PATCH.TD24 TD SCH (18:31)
[2018-12-27] MEDS ORDERED: DEXTROSE 50%-WATER 25 GM/50 ML DISP.SYRIN IV PRN ×2 (18:57)
[2018-12-27] MEDS ORDERED: LABETALOL HCL INJ 20 MG/4 ML DISP.SYRIN IV PRN ×2 (18:58→19:30)
[2018-12-27] MEDS: IPRATROPIUM/ALBUTEROL 0.5-2.5 MG/3 ML AMPUL NEB SCH (19:52)
[2018-12-27 21:38] LABS: APPEARANCE,URINE SLIGHTLY-CLOUDY; BILIRUBIN,URINE NEGATIVE (NEGATIVE); COLOR,URINE AMBER; GLUCOSE, URINE >=500 mg/dL (NEGATIVE); KETONES,URINE 20 mg/dL (NEGATIVE); LEUKOCYTE ESTERASE,URINE NEGATIVE (NEGATIVE); NITRITE,URINE NEGATIVE (NEGATIVE); PROTEIN,URINE 100 mg/dL (NEGATIVE)
[2018-12-27 21:41] LABS: URINE SPECIFIC GRAVITY > 1.060
--- NOTE | 2018-12-27 22:32 | XCELERA REPORT ---
[address] [address] Transthoracic Echocardiogram Report Name: GRISEL LOTT Age: 68 yrs Gender: Male : 1950 Patient Status: Inpatient Patient Location: [address] [place] [address] Study Date: 12/27/2018 08:03 PM Height: 71 in Weight: 196 lb BSA: 2.1 m2 Procedure: A two-dimensional transthoracic echocardiogram with color flow and Doppler was performed. The study was technically difficult with many images being suboptimal in quality. Study Quality: Technically suboptimal. Reason For Study: CHF Exa History: CHF. Ordering Physician: LOKI HOFF Performed By: Arina Sandhu Interpretation Summary The left ventricle is normal in size. There is normal left ventricular wall thickness. LV EF is > than 60% The left ventricular ejection fraction is within normal limits. Doppler measurements suggest impaired left ventricular relaxation, which is associated with grade I/IV or mild diastolic dysfunction Proably no regional wall motion abnormalities. There is no thrombus. The right ventricle is not well visualized secondary to technical limitations Right atrium not well visualized secondary to technical limitations The left atrial size is normal. There is no evidence of mitral valve prolapse. There is no mitral valve stenosis. There is a trace amount of mitral regurgitation There is no aortic valve stenosis No aortic regurgitation is present. There is no tricuspid stenosis. There is a trace amount of tricuspid regurgitation Normal RVSP of 16 to 21mm of Hg , with RA mean of 5 to 10. The pulmonic valve is not well visualized. There is no pulmonic valvular stenosis. There is no pulmonic valvular regurgitation. The aortic root is normal size. The inferior vena cava appeared normal and decreased > 50% with respiration (RAP 5-10 mmHg) There is no pericardial effusion. MMode/2D Measurements & Calculations RVDd: 2.9 cm LVIDd: 5.6 cm FS: 35.4 % Ao root diam: 3.1 cm IVSd: 1.1 cm LVIDs: 3.6 cm EDV(Teich): 154.0 ml Ao root area: 7.4 cm2 LVPWd: 1.2 cm ESV(Teich): 55.1 ml LA dimension: 3.7 cm EF(Teich): 64.2 % Doppler Measurements & Calculations MV E max dolores: MV P1/2t max dolores: Ao V2 max: LV V1 max P.6 cm/sec 86.9 cm/sec 139.0 cm/sec 3.9 mmHg MV A max dolores: MV P1/2t: 49.3 msec Ao max PG: LV V1 max: 91.3 cm/sec MVA(P1/2t): 4.5 cm2 7.7 mmHg 99.2 cm/sec MV E/A: 0.73 MV dec slope: 516.2 cm/sec2 MV dec time: 0.22 sec TV V2 max: PA V2 max: TR max dolores: MV P1/2t-pr_phl: 77.4 cm/sec 79.3 cm/sec 161.8 cm/sec 49.3 msec TV max PG: PA max P.5 mmHg TR max P.4 mmHg 10.5 mmHg Left Ventricle The left ventricle is normal in size. There is normal left ventricular wall thickness. LV EF is > than 60%. The left ventricular ejection fraction is within normal limits. Doppler measurements suggest impaired left ventricular relaxation, which is associated with grade I/IV or mild diastolic dysfunction. Proably no regional wall motion abnormalities. There is no thrombus. Right Ventricle The right ventricle is not well visualized secondary to technical limitations. Atria Right atrium not well visualized secondary to technical limitations. The left atrial size is normal. Mitral Valve There is no evidence of mitral valve prolapse. There is no vegetation seen on the mitral valve. There is no mitral valve stenosis. There is a trace amount of mitral regurgitation. Aortic Valve There is no aortic valvular vegetation. There is no aortic valve stenosis. No aortic regurgitation is present. Tricuspid Valve There is no tricuspid stenosis. There is a trace amount of tricuspid regurgitation. Normal RVSP of 16 to 21mm of Hg , with RA mean of 5 to 10. Pulmonic Valve The pulmonic valve is not well visualized. There is no pulmonic valvular stenosis. There is no pulmonic valvular regurgitation. Great Vessels The aortic root is normal size. The inferior vena cava appeared normal and decreased > 50% with respiration (RAP 5-10 mmHg). Effusions There is no pericardial effusion. : LOKI HOFF > Masha Ulloa
[2018-12-27] MEDS: INSULIN LISPRO 100 UNIT/ML 3 ML VIAL SUBCUT SCH (22:55)
[2018-12-28] MEDS: HEPARIN SOD (PORCINE) 5,000 UNIT/ML 1 ML SYRINGE SUBCUT SCH ×3 (05:59→22:40)
[2018-12-28] MEDS: GUAIFENESIN 600 MG TABLET.SA PO SCH ×2 (05:59→17:39)
[2018-12-28] MEDS: LANSOPRAZOLE 30 MG TAB.RAP.DR PO SCH ×2 (06:00→17:39)
[2018-12-28] MEDS: IPRATROPIUM/ALBUTEROL 0.5-2.5 MG/3 ML AMPUL NEB SCH ×3 (08:04→20:11)
[2018-12-28 08:35] LABS: ABSOLUTE BASOPHILS # (AUTO) 0.1 10^3/uL (0.0-0.2); ABSOLUTE LYMPHOCYTES (AUTO) 1.2 10^3/uL (0.5-4.7); ABSOLUTE MONOCYTES (AUTO) 1.5 10^3/uL (0.1-1.4); ABSOLUTE NEUT (AUTO) 10.7 10^3/uL (1.7-8.2); BASOPHILS % (AUTO) 0.6 % (0-2); EOSINOPHILS % (AUTO) 0.1 % (0-6); HEMATOCRIT 52.2 % (37.9-51.0); HEMOGLOBIN 17.4 g/dL (13.5-17.0); LYMPHOCYTES % (AUTO) 8.7 % (13-45); MEAN CORPUSCULAR HEMOGLOBIN 30.9 pg (27.0-33.4); MEAN CORPUSCULAR HGB CONC 33.3 g/dL (32.0-36.0); MEAN CORPUSCULAR VOLUME 93 fl (80-97); MONOCYTES % (AUTO) 11.1 % (3-13); PLATELET COUNT 173 10^3/uL (150-450); RED BLOOD COUNT 5.62 10^6/uL (4.35-5.55); RED CELL DISTRIBUTION WIDTH 14.9 % (11.5-14.0); SEGMENTED NEUTROPHILS % (AUTO) 79.5 % (42-78); TOTAL CELLS COUNTED % (AUTO) 100 %; WHITE BLOOD COUNT 13.5 10^3/uL (4.0-10.5)
[2018-12-28] MEDS: INSULIN LISPRO 100 UNIT/ML 3 ML VIAL SUBCUT SCH ×4 (09:32→22:39)
[2018-12-28] MEDS ORDERED: PREDNISONE 20 MG TABLET PO SCH (10:00)
[2018-12-28] MEDS: METOPROLOL SUCCINATE 25 MG TAB.SR.24H PO SCH (10:42)
[2018-12-28] MEDS: LEVOFLOXACIN 750 MG/D5W RTU 750 MG/150 ML RTUPB IV SCH (10:43)
[2018-12-28] MEDS: NICOTINE 21 MG/24 HR PATCH.TD24 TD SCH (10:43)
[2018-12-28] MEDS: LISINOPRIL 10 MG TABLET PO SCH (10:43)
[2018-12-28 11:15] LABS: ALANINE AMINOTRANSFERASE 29 U/L (21-72); ALBUMIN 3.8 g/dL (3.5-5.0); ALKALINE PHOSPHATASE 89 U/L (38-126); ANION GAP 9 (5-19); ASPARTATE AMINO TRANSFERASE 14 U/L (17-59); BILIRUBIN,DIRECT 0.5 mg/dL (0.0-0.4); BILIRUBIN,TOTAL 0.9 mg/dL (0.2-1.3); BLOOD UREA NITROGEN 24 mg/dL (7-20); CALCIUM 9.4 mg/dL (8.4-10.2); CARBON DIOXIDE 35 mmol/L (22-30); CHLORIDE 98 mmol/L (98-107); GLUCOSE 217 mg/dL (75-110); POTASSIUM 4.4 mmol/L (3.6-5.0); SODIUM 141.7 mmol/L (137-145); TOTAL PROTEIN 7.3 g/dL (6.3-8.2)
[2018-12-28] MEDS: TIOTROPIUM BROMIDE DPI 5 CAP/KIT (18 MCG/CAP) IH SCH (17:39)
--- NOTE | 2018-12-28 18:52 | PDOC PROGRESS REPORT ---
Subjective Progress Note for:: 12/28/18 Subjective:: GRISEL LOTT is a 68 year old male medical history of hypertension, diabetes COPD not on home oxygen, tobacco abuse, ALEJANDRA on CPAP who was admitted 12/27/2018 for acute respiratory failure with hypoxia secondary to pneumonia and COPD exacerbation. Patient was seen on morning rounds with his family members present. He was found sitting up to the edge of the bed on supplemental oxygen by nasal cannula at 5 L/min. He was noted to have oxygen saturation in the mid 90s; oxygen was decreased to 3 L/min while I was in the room. Patient continued to tolerate well. He reports continued dyspnea with minimal exertion, however is now comfortable while at rest. He does endorse a productive cough. He denies fever, chills, headache, dizziness, chest pain, palpitations, orthopnea, abdominal pain, nausea vomiting and diarrhea. He has no other questions or concerns. No concerns per nursing. Reason For Visit: PNEUMONIA, COPD EXA Physical Exam Vital Signs: Temp Pulse Resp BP Pulse Ox 98.6 F 81 21 H 119/71 94 12/28/18 15:44 12/28/18 15:44 12/28/18 15:44 12/28/18 15:44 12/28/18 15:44 Pulse Oximeter Continuous Start: 12/27/18 14:28 Freq: RTQ4 Status: Active Protocol: Document 12/28/18 11:24 [facility] [place]Rec: 12/28/18 11:26 [facility] [place] [id number]) Pulse Oximetry Assessment Oxygen Saturation (92-100) 96 Oxygen Flow Rate (L/min) 4 Oxygen Delivery Method Nasal Cannula Fraction of Inspired Oxygen (FIO2) 36 Equipment Usage Equipment in Use Continuous SpO2 Machine # N 2 Intake & Output 12/27/18 12/28/18 12/29/18 06:59 06:59 06:59 Intake Total 1493 950 Balance 1493 950 Weight 102.7 kg General appearance: PRESENT: no acute distress, cooperative, obese, well- developed, well-nourished Head exam: PRESENT: atraumatic, normocephalic Eye exam: PRESENT: conjunctiva pink, EOMI, PERRLA. ABSENT: scleral icterus Ear exam: PRESENT: normal external ear exam Mouth exam: PRESENT: moist, tongue midline Neck exam: ABSENT: carotid bruit, JVD, lymphadenopathy, thyromegaly Respiratory exam: PRESENT: prolonged expiratory phas, rhonchi, symmetrical, unl abored, wheezes. ABSENT: rales Cardiovascular exam: PRESENT: RRR. ABSENT: diastolic murmur, rubs, systolic murmur Pulses: PRESENT: normal dorsalis pedis pul Vascular exam: PRESENT: normal capillary refill GI/Abdominal exam: PRESENT: normal bowel sounds, soft. ABSENT: distended, guarding, mass, organolmegaly, rebound, tenderness Rectal exam: PRESENT: deferred Extremities exam: PRESENT: full ROM. ABSENT: calf tenderness, clubbing, pedal edema Neurological exam: PRESENT: alert, awake, oriented to person, oriented to place, oriented to time, oriented to situation, CN II-XII grossly intact. ABSENT: motor sensory deficit Psychiatric exam: PRESENT: appropriate affect, normal mood. ABSENT: homicidal ideation, suicidal ideation Skin exam: PRESENT: dry, intact, warm. ABSENT: cyanosis, rash Results Laboratory Results: 12/28/18 08:00 12/28/18 10:20 12/27/18 12/28/18 12/28/18 19:30 08:00 08:00 WBC 13.5 H RBC 5.62 H Hgb 17.4 H Hct 52.2 H MCV 93 MCH 30.9 MCHC 33.3 RDW 14.9 H Plt Count 173 Seg Neutrophils % 79.5 H Lymphocytes % 8.7 L Monocytes % 11.1 Eosinophils % 0.1 Basophils % 0.6 Absolute Neutrophils 10.7 H Absolute Lymphocytes 1.2 Absolute Monocytes 1.5 H Absolute Eosinophils 0.0 Absolute Basophils 0.1 Sodium Cancelled Potassium Cancelled Chloride Cancelled Carbon Dioxide Cancelled Anion Gap Cancelled BUN Cancelled Creatinine Cancelled Est GFR ( Amer) Cancelled Est GFR (Non-Af Amer) Cancelled Glucose Cancelled Calcium Cancelled Total Bilirubin Cancelled AST Cancelled ALT Cancelled Alkaline Phosphatase Cancelled Total Protein Cancelled Albumin Cancelled Urine Color LISBETH Urine Appearance SLIGHTLY-CLOUDY Urine pH 6.0 Ur Specific [place] > 1.060 Urine Protein 100 H Urine Glucose (UA) >=500 H Urine Ketones 20 H Urine Blood SMALL H Urine Nitrite NEGATIVE Ur Leukocyte Esterase NEGATIVE Urine WBC (Auto) 1 Urine RBC (Auto) 3 12/28/18 10:20 WBC RBC Hgb Hct MCV MCH MCHC RDW Plt Count Seg Neutrophils % Lymphocytes % Monocytes % Eosinophils % Basophils % Absolute Neutrophils Absolute Lymphocytes Absolute Monocytes Absolute Eosinophils Absolute Basophils Sodium 141.7 Potassium 4.4 Chloride 98 Carbon Dioxide 35 H Anion Gap 9 BUN 24 H Creatinine 0.67 Est GFR ( Amer) > 60 Est GFR (Non-Af Amer) > 60 Glucose 217 H Calcium 9.4 Total Bilirubin 0.9 AST 14 L ALT 29 Alkaline Phosphatase 89 Total Protein 7.3 Albumin 3.8 Urine Color Urine Appearance Urine pH Ur Specific [place] Urine Protein Urine Glucose (UA) Urine Ketones Urine Blood Urine Nitrite Ur Leukocyte Esterase Urine WBC (Auto) Urine RBC (Auto) 12/27/18 12/27/18 12/27/18 10:58 10:58 16:02 Troponin I 0.073 0.057 NT-Pro-B Natriuret Pep 2710 H Impressions: Chest/Abdomen CTA 12/27/18 00:00 IMPRESSION: 1. No PE. 2. Atelectasis. No infiltrate. Chest X-Ray 12/27/18 10:34 IMPRESSION: NO ACUTE RADIOGRAPHIC FINDING IN THE CHEST. Assessment & Plan - Diagnosis (1) Acute respiratory failure with hypoxia Is this a current diagnosis for this admission?: Yes Plan: Secondary to COPD exacerbation and pneumonia. Patient is not home O2 dependent but does use CPAP nightly for ALEJANDRA. CTA was negative for PE and infiltrates; does demonstrate bilateral atelectasis. ABG demonstrated respiratory acidosis with hypercapnia and hypoxia. PCO2 elevated to 73.3. Patient was admitted to the medical floor on continuous cardiac telemetry. He is provided supplemental oxygen and BiPAP as needed to maintain oxygen saturations >88%. He is provided as needed nebulizer treatments. Continue Spiriva. Continue p.o. prednisone. He is empirically been placed on IV Levaquin for coverage of a community- acquired pneumonia. Mucinex twice daily. Incentive spirometer and flutter valve to bedside. (2) COPD with acute exacerbation Is this a current diagnosis for this admission?: Yes Plan: Management as above. (3) Pneumonia Is this a current diagnosis for this admission?: Yes Plan: Likely community-acquired pneumonia caused by strep pneumo. Blood and sputum cultures have no growth at 24 hours. He has been empirically placed on IV Levaquin. Remaining management as above. (4) Diabetes Qualifiers: Diabetes mellitus type: type 2 Is this a current diagnosis for this admission?: No Plan: A1C 6.7% Holding oral medications while admitted. Patient is placed on a diabetic diet with Accu-Cheks before meals and at bedtime and Humalog for sliding scale coverage. (5) HTN (hypertension) Is this a current diagnosis for this admission?: No Plan: Normotensive. Continue home dose lisinopril and metoprolol. (6) ALEJANDRA (obstructive sleep apnea) Is this a current diagnosis for this admission?: No Plan: CPAP nightly. (7) Tobacco abuse Is this a current diagnosis for this admission?: Yes Plan: Smoking cessation is encouraged; nicotine or placement therapies are provided. (8) Erythrocytosis Is this a current diagnosis for this admission?: Yes Plan: Stable; 18.5-> 17.4 Likely secondary to chronic hypoxia resulting from COPD, ALEJANDRA, and continuous tobacco dependence. - Time Time Spent with patient: 15-24 minutes Medications reviewed and adjusted accordingly: Yes Anticipated discharge: Home Within: within 48 hours
[2018-12-28] MEDS ORDERED: (PENDING PHARMACY ID) (Fluticasone/Salmeterol [Advair Hfa 115-21 Mcg Inhaler] 2 PUFF) IH SCH (22:00)
[2018-12-29 05:35] LABS: HEMATOCRIT 45.4 % (37.9-51.0); HEMOGLOBIN 15.6 g/dL (13.5-17.0); MEAN CORPUSCULAR HEMOGLOBIN 32.1 pg (27.0-33.4); MEAN CORPUSCULAR HGB CONC 34.3 g/dL (32.0-36.0); MEAN CORPUSCULAR VOLUME 94 fl (80-97); PLATELET COUNT 142 10^3/uL (150-450); RED BLOOD COUNT 4.85 10^6/uL (4.35-5.55); RED CELL DISTRIBUTION WIDTH 14.6 % (11.5-14.0); WHITE BLOOD COUNT 11.6 10^3/uL (4.0-10.5)
[2018-12-29 05:53] LABS: ANION GAP 7 (5-19); BLOOD UREA NITROGEN 33 mg/dL (7-20); CALCIUM 9.1 mg/dL (8.4-10.2); CARBON DIOXIDE 36 mmol/L (22-30); CHLORIDE 100 mmol/L (98-107); GLUCOSE 107 mg/dL (75-110); SODIUM 142.5 mmol/L (137-145)
[2018-12-29] MEDS: GUAIFENESIN 600 MG TABLET.SA PO SCH ×2 (05:58→17:27)
[2018-12-29] MEDS: LANSOPRAZOLE 30 MG TAB.RAP.DR PO SCH ×2 (05:58→17:27)
[2018-12-29] MEDS: HEPARIN SOD (PORCINE) 5,000 UNIT/ML 1 ML SYRINGE SUBCUT SCH ×3 (05:58→22:38)
[2018-12-29] MEDS: INSULIN LISPRO 100 UNIT/ML 3 ML VIAL SUBCUT SCH ×4 (08:15→22:38)
[2018-12-29] MEDS: IPRATROPIUM/ALBUTEROL 0.5-2.5 MG/3 ML AMPUL NEB SCH ×3 (08:55→20:30)
[2018-12-29] MEDS: LISINOPRIL 10 MG TABLET PO SCH (09:59)
[2018-12-29] MEDS: PREDNISONE 20 MG TABLET PO SCH (09:59)
[2018-12-29] MEDS: NICOTINE 21 MG/24 HR PATCH.TD24 TD SCH (10:00)
[2018-12-29] MEDS: LEVOFLOXACIN 750 MG/D5W RTU 750 MG/150 ML RTUPB IV SCH (10:01)
[2018-12-29] MEDS: METOPROLOL SUCCINATE 25 MG TAB.SR.24H PO SCH (10:14)
--- NOTE | 2018-12-29 10:27 | EKG REPORT ---
SEVERITY:- ABNORMAL ECG - SINUS TACHYCARDIA VENTRICULAR PREMATURE COMPLEX PROBABLE LEFT ATRIAL ABNORMALITY BORDERLINE T ABNORMALITIES, ANT-LAT LEADS BORDERLINE PROLONGED QT INTERVAL : Confirmed by: Sherry Robledo 29-Dec-2018 10:25:54
--- NOTE | 2018-12-29 10:27 | EKG REPORT ---
SEVERITY:- ABNORMAL ECG - SINUS TACHYCARDIA MULTIPLE VENTRICULAR PREMATURE COMPLEXES PROBABLE LEFT ATRIAL ABNORMALITY : Confirmed by: Sherry Robledo 29-Dec-2018 10:26:08
[2018-12-29] MEDS: TIOTROPIUM BROMIDE DPI 5 CAP/KIT (18 MCG/CAP) IH SCH (17:27)
[2018-12-29] MEDS: DOCUSATE SODIUM 100 MG CAPSULE PO SCH (17:27)
--- NOTE | 2018-12-29 17:37 | PDOC PROGRESS REPORT ---
Subjective Progress Note for:: 12/29/18 Subjective:: This is 68 years old male patient who is past medical history of type 2 diabetes mellitus, hypertension, COPD, obstructive sleep apnea and a history of MRSA from abscess at different site. Patient presented with progressively worsening shortness of breath. Patient is everyday smoker about 2 packs a day. He is a sputum culture is positive for haemophilus influenza and strep pneumonia. Currently patient has been getting Levaquin. At admission his blood work shows leukocytosis which is trending down. Reason For Visit: PNEUMONIA, COPD EXA Physical Exam Vital Signs: Temp Pulse Resp BP Pulse Ox 98.4 F 85 20 120/58 L 95 12/29/18 15:07 12/29/18 15:07 12/29/18 15:07 12/29/18 15:07 12/29/18 13:51 Pulse Oximeter Continuous Start: 12/27/18 14:28 Freq: RTQ4 Status: Active Protocol: Document 12/29/18 13:51 [facility] [place]Rec: 12/29/18 14:01 [facility] [place] [id number] Pulse Oximetry Assessment Oxygen Saturation (92-100) 95 Oxygen Flow Rate (L/min) 4 Oxygen Delivery Method Nasal Cannula Fraction of Inspired Oxygen (FIO2) 36 Equipment Usage Equipment in Use Continuous SpO2 Machine # N 2 Intake & Output 12/28/18 12/29/18 12/30/18 06:59 06:59 06:59 Intake Total 1493 950 949 Balance 1493 950 949 Weight 102.7 kg 102.4 kg General appearance: PRESENT: mild distress Head exam: PRESENT: atraumatic Eye exam: PRESENT: conjunctiva pink Mouth exam: PRESENT: moist Neck exam: ABSENT: carotid bruit, JVD, lymphadenopathy, thyromegaly Respiratory exam: PRESENT: wheezes Cardiovascular exam: PRESENT: RRR. ABSENT: diastolic murmur, rubs, systolic murmur GI/Abdominal exam: PRESENT: normal bowel sounds, soft. ABSENT: distended, guarding, mass, organolmegaly, rebound, tenderness Neurological exam: PRESENT: alert, awake, oriented to time, oriented to situation Results Laboratory Results: 12/29/18 04:39 12/29/18 04:39 12/29/18 12/29/18 04:39 04:39 WBC 11.6 H RBC 4.85 Hgb 15.6 Hct 45.4 MCV 94 MCH 32.1 MCHC 34.3 RDW 14.6 H Plt Count 142 L Sodium 142.5 Potassium 4.0 Chloride 100 Carbon Dioxide 36 H Anion Gap 7 BUN 33 H Creatinine 0.79 Est GFR ( Amer) > 60 Est GFR (Non-Af Amer) > 60 Glucose 107 Calcium 9.1 12/27/18 19:30 Clean Catch Midstream Urine Culture - Final NO GROWTH 2 DAYS 12/27/18 12/27/18 12/27/18 10:58 10:58 16:02 Troponin I 0.073 0.057 NT-Pro-B Natriuret Pep 2710 H Impressions: Chest/Abdomen CTA 12/27/18 00:00 IMPRESSION: 1. No PE. 2. Atelectasis. No infiltrate. Chest X-Ray 12/27/18 10:34 IMPRESSION: NO ACUTE RADIOGRAPHIC FINDING IN THE CHEST. Assessment & Plan - Diagnosis (1) Acute respiratory failure with hypoxia Is this a current diagnosis for this admission?: Yes Plan: Improving. Continue supplemental oxygen. (2) Pneumonia Is this a current diagnosis for this admission?: Yes Plan: His sputum culture positive for strep pneumonia and influenza A. Continue Levaquin. (3) Leukocytosis Qualifiers: Leukocytosis type: unspecified Qualified Code(s): D72.829 - Elevated white blood cell count, unspecified Is this a current diagnosis for this admission?: Yes Plan: Has trended down. (4) COPD exacerbation Is this a current diagnosis for this admission?: Yes Plan: Continue current regimen (5) Type 2 diabetes mellitus Is this a current diagnosis for this admission?: Yes Plan: Continue current regimen (6) Obstructive sleep apnea Is this a current diagnosis for this admission?: Yes Plan: Continue CPAP
[2018-12-30] MEDS: HEPARIN SOD (PORCINE) 5,000 UNIT/ML 1 ML SYRINGE SUBCUT SCH (05:43)
[2018-12-30] MEDS: LANSOPRAZOLE 30 MG TAB.RAP.DR PO SCH (05:52)
[2018-12-30] MEDS: GUAIFENESIN 600 MG TABLET.SA PO SCH (05:53)
[2018-12-30] MEDS: IPRATROPIUM/ALBUTEROL 0.5-2.5 MG/3 ML AMPUL NEB SCH (07:56)
[2018-12-30] MEDS: INSULIN LISPRO 100 UNIT/ML 3 ML VIAL SUBCUT SCH (07:58)
[2018-12-30] MEDS: PREDNISONE 20 MG TABLET PO SCH (09:33)
[2018-12-30] MEDS: METOPROLOL SUCCINATE 25 MG TAB.SR.24H PO SCH (09:34)
[2018-12-30] MEDS: NICOTINE 21 MG/24 HR PATCH.TD24 TD SCH (09:34)
[2018-12-30] MEDS: DOCUSATE SODIUM 100 MG CAPSULE PO SCH (09:34)
[2018-12-30] MEDS: LISINOPRIL 10 MG TABLET PO SCH (09:36)
[2018-12-30] MEDS: LEVOFLOXACIN 750 MG/D5W RTU 750 MG/150 ML RTUPB IV SCH (09:36)
--- NOTE | 2018-12-30 10:41 | PDOC DISCHARGE SUMMARY ---
General - Admit/Disc Date/PCP Admission Date/Primary Care Provider: 12/27/18 13:42 YARON LI PA-C Discharge Date: 12/30/18 - Discharge Diagnosis (1) Acute respiratory failure with hypoxia Is this a current diagnosis for this admission?: Yes (2) Pneumonia Is this a current diagnosis for this admission?: Yes (3) Leukocytosis Is this a current diagnosis for this admission?: Yes (4) COPD exacerbation Is this a current diagnosis for this admission?: Yes (5) Type 2 diabetes mellitus Is this a current diagnosis for this admission?: Yes (6) Obstructive sleep apnea Is this a current diagnosis for this admission?: Yes - Additional Information Prescriptions: Levofloxacin [Levaquin 500 mg Tablet] 500 mg PO DAILY #5 tablet Prednisone [Deltasone 20 mg Tablet] 40 mg PO DAILY 5 Days #10 tablet Home Medications: Lisinopril [Prinivil 10 mg Tablet] 40 mg PO DAILY 08/19/12 Metformin HCl [Glucophage 500 mg Tablet] 1,000 mg PO BID 08/19/12 Glimepiride 2 mg PO BID 01/20/18 Metoprolol Succinate 25 mg PO DAILY 01/20/18 Fluticasone/Salmeterol [Advair HFA 115-21 mcg Inhaler] 2 puff IH Q12 12/27/18 Tiotropium [place] [Spiriva Handihaler 5 Cap/Kit (18 Mcg/Cap)] 1 cap IH DAILY 12/27/18 Levofloxacin [Levaquin 500 mg Tablet] 500 mg PO DAILY #5 tablet 12/30/18 Prednisone [Deltasone 20 mg Tablet] 40 mg PO DAILY 5 Days #10 tablet 12/30/18 History of Present Illness History of Present Illness: GRISEL LOTT is a 68 year old male medical history of hypertension, diabetes COPD not on home oxygen, tobacco abuse, ALEJANDRA on CPAP, 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 Denies any sick contact, got his flu shot and pneumonia vaccine. Denies any fever, chills, nausea, vomiting, diarrhea, constipation, urinary symptoms, orthopnea or paroxysmal nocturnal dyspnea, lower extremity swelling, or any urinary symptoms. In ED he was found to have leukocytosis with no bandemia, saturating 89% 4 L nasal cannula. Chest x-ray did not show any acute abnormalities. Hospitalist was consulted for admission. Hospital Course Hospital Course: This is 68 years old male patient who is past medical history of type 2 diabetes mellitus, hypertension, COPD, obstructive sleep apnea and a history of MRSA from abscess at different site. Patient presented with progressively worsening shortness of breath. Patient is everyday smoker about 2 packs a day. He is a sputum culture is positive for haemophilus influenza and strep pneumonia. Patient has been treated with IV Levaquin, supplemental oxygen, bronchodilator and prednisone. His shortness of breath has subsided. This morning I seen patient sitting by the bedside and chatting with his sister. I will send him home with Levaquin 500 mg p.o. daily for 5 days and prednisone 40 mg p.o. daily for 5 days. Patient advised to see his primary care physician in the coming 1 week. He is also counseled and encouraged to quit smoking and he voices agreement. Physical Exam Vital Signs: Temp Pulse Resp BP Pulse Ox 98.0 F 72 18 143/64 H 97 12/30/18 08:06 12/30/18 08:06 12/30/18 08:06 12/30/18 08:06 12/30/18 07:56 Pulse Oximeter Continuous Start: 12/27/18 14:28 Freq: RTQ4 Status: Active Protocol: Document 12/30/18 07:56 [facility] [place]Rec: 12/30/18 08:04 [facility] [id number] Pulse Oximetry Assessment Oxygen Saturation (92-100) 97 Oxygen Flow Rate (L/min) 3 Oxygen Delivery Method Nasal Cannula Fraction of Inspired Oxygen (FIO2) 32 Equipment Usage Equipment in Use Continuous SpO2 Machine # N 2 Intake & Output 12/29/18 12/30/18 12/31/18 06:59 06:59 06:59 Intake Total 950 1492 Balance 950 1492 Weight 102.4 kg 105.1 kg General appearance: PRESENT: no acute distress Head exam: PRESENT: atraumatic, normocephalic Eye exam: PRESENT: conjunctiva pink Mouth exam: PRESENT: moist Neck exam: ABSENT: carotid bruit, JVD, lymphadenopathy, thyromegaly Respiratory exam: PRESENT: wheezes - Occasional bilateral Cardiovascular exam: PRESENT: RRR. ABSENT: diastolic murmur, rubs, systolic murmur Neurological exam: PRESENT: alert, awake, oriented to time, oriented to situation Psychiatric exam: PRESENT: normal mood Results Laboratory Results: 12/29/18 04:39 12/29/18 04:39 12/27/18 19:30 Clean Catch Midstream Urine Culture - Final NO GROWTH 2 DAYS 12/27/18 12/27/18 12/27/18 10:58 10:58 16:02 Troponin I 0.073 0.057 NT-Pro-B Natriuret Pep 2710 H Impressions: Chest/Abdomen CTA 12/27/18 00:00 IMPRESSION: 1. No PE. 2. Atelectasis. No infiltrate. Chest X-Ray 12/27/18 10:34 IMPRESSION: NO ACUTE RADIOGRAPHIC FINDING IN THE CHEST. Qualifiers - * PATIENT BEING DISCHARGED WITH ANY OF THE FOLLOWING DIAGNOSIS: No
[2018-12-30 10:45] VITALS: BP 127/63
== END 2018-12-30 12:16 | disposition home or self-care (01) | DRG 193 ==
LOC: ER 10:12 → UNDOADMIN 13:42 → EH 13:42 → 4S 15:36
PROVIDERS: ADMIT Internal Medicine; ATTEND Internal Medicine
PROC: 5A09457 Assistance with Respiratory Ventilation, 24-96 Consecutive Hours, Continuous Positive Airway Pressure (ICD-10-PCS; principal; 2018-12-27)
DX: J13 Pneumonia due to Streptococcus pneumoniae (principal); J96.01 Acute respiratory failure with hypoxia; J44.0 Chronic obstructive pulmonary disease with (acute) lower respiratory infection; J44.1 Chronic obstructive pulmonary disease with (acute) exacerbation; E66.9 Obesity, unspecified; J14 Pneumonia due to Hemophilus influenzae; D72.829 Elevated white blood cell count, unspecified; G47.33 Obstructive sleep apnea (adult) (pediatric); I10 Essential (primary) hypertension; E11.9 Type 2 diabetes mellitus without complications; F17.200 Nicotine dependence, unspecified, uncomplicated; Z86.14 Personal history of Methicillin resistant Staphylococcus aureus infection; Z83.3 Family history of diabetes mellitus; Z83.438 Family history of other disorder of lipoprotein metabolism and other lipidemia; Z79.84 Long term (current) use of oral hypoglycemic drugs; Z79.899 Other long term (current) drug therapy
CPT/HCPCS: 36415; 71046; 71275; 80048; 80053; 81001; 82803; 82962; 83036; 83880; 84484; 85025; 85027; 87040; 87070; 87077; 87086; 87186; 87205; 93005; 93010; 93306; 94640; 94660; 94667; 94762; 94799; 99285; J1644; J1815; J1956; J3490; J7030; J7512; J7620

== ENCOUNTER 2019-04-02 11:40 | Emergency (ER) | payer MEDICARE, BC ==
[2019-04-02] MEDS ORDERED: ASPIRIN 81 MG TABLET, CHEWABLE PO ONE (11:54)
--- NOTE | 2019-04-02 11:56 | ER Document Report ---
ED Medical Screen (RME) - General Chief Complaint: Breathing Difficulty Stated Complaint: BREATHING DIFFICULTY Time Seen by Provider: 04/02/19 11:51 Primary Care Provider: YARON LI PA-C [Primary Care Provider] - Follow up as needed Mode of Arrival: Ambulatory Information source: Patient Notes: Patient presents complaining of 2 to 3-week history of difficulty breathing with exertional dyspnea. Patient denies any cough or chest pain but states that his heart does not feel right and that it will occasionally skipp beats. hx: Diabetes hypertension COPD I have greeted and performed a rapid initial assessment of this patient. A comprehensive ED assessment and evaluation of the patient, analysis of test results and completion of the medical decision making process will be conducted by additional ED providers. TRAVEL OUTSIDE OF THE [place] IN LAST 30 DAYS: No - Related Data Allergies/Adverse Reactions: tamsulosin [Tamsulosin] Allergy (Verified 12/27/18 10:14) URINARY FREQUENCY Past Medical History - Past Medical History Cardiac Medical History: Reports: Hx Hypertension Denies: Hx Heart Attack Pulmonary Medical History: Reports: Hx COPD Denies: Hx Asthma, Hx Bronchitis, Hx Pneumonia, Hx Tuberculosis Neurological Medical History: Denies: Hx Cerebrovascular Accident, Hx Seizures Endocrine Medical History: Reports: Hx Diabetes Mellitus Type 2 Renal/ Medical History: Denies: Hx Peritoneal Dialysis GI Medical History: Denies: Hx Hepatitis, Hx Hiatal Hernia, Hx Ulcer Musculoskeltal Medical History: Reports Hx Musculoskeletal Deformity, Reports Hx Musculoskeletal Trauma Skin Medical History: Reports Hx Cellulitis, Reports Hx MRSA Psychiatric Medical History: Denies: Hx Depression Infectious Medical History: Reports: Hx MRSA. Denies: Hx Hepatitis Past Surgical History: Reports: Hx Orthopedic Surgery - right knee. Denies: Hx Open Heart Surgery, Hx Pacemaker - Immunizations Immunizations up to date: No Hx Diphtheria, Pertussis, Tetanus Vaccination: No Influenza Administration Date for 08/2017 - 12/2017 Season: 08/02/17 Physical Exam - Vital signs Vitals: Temp Pulse BP Pulse Ox 97.3 F 99 171/62 H 93 04/02/19 11:47 04/02/19 11:47 04/02/19 11:47 04/02/19 11:47 - Cardiovascular Rhythm: Regular Heart sounds: S1 appreciated, S2 appreciated Course - Vital Signs Vital signs: Temp Pulse Resp BP Pulse Ox 97.3 F 99 171/62 H 93 04/02/19 11:47 04/02/19 11:47 04/02/19 11:47 04/02/19 11:47 Doctor's Discharge - Discharge Referrals: YARON LI PA-C [Primary Care Provider] - Follow up as needed
--- NOTE | 2019-04-02 12:42 | RADIOLOGY REPORT (SQ) ---
EXAM DESCRIPTION: CHEST 2 VIEWS COMPLETED DATE/TIME: 04/02/2019 12:30 pm REASON FOR STUDY: sob COMPARISON: 12/27/2018 and earlier EXAM PARAMETERS: NUMBER OF VIEWS: two views TECHNIQUE: Digital Frontal and Lateral radiographic views of the chest acquired. RADIATION DOSE: NA LIMITATIONS: none FINDINGS: LUNGS AND PLEURA: Increased AP diameter of the chest with flattening of the hemidiaphragm s best appreciated on the lateral view. . No opacities, masses or pneumothorax. No pleural effusion . MEDIASTINUM AND HILAR STRUCTURES: No masses or contour abnormalities. HEART AND VASCULAR STRUCTURES: Heart normal size. No evidence for failure. BONES: No acute findings. HARDWARE: None in the chest. OTHER: No other significant finding. IMPRESSION: 1. No acute cardiopulmonary process. 2. Sequela of COPD. TECHNICAL DOCUMENTATION: JOB ID: [id number] [employer]- All Rights Reserved Reading location - IP/workstation name: [email or web address]
[2019-04-02 12:46] LABS: ABSOLUTE BASOPHILS # (AUTO) 0.1 10^3/uL (0.0-0.2); ABSOLUTE EOSINOPHILS # (AUTO) 0.1 10^3/uL (0.0-0.6); ABSOLUTE LYMPHOCYTES (AUTO) 1.6 10^3/uL (0.5-4.7); ABSOLUTE MONOCYTES (AUTO) 1.3 10^3/uL (0.1-1.4); ABSOLUTE NEUT (AUTO) 5.8 10^3/uL (1.7-8.2); BASOPHILS % (AUTO) 1.2 % (0-2); EOSINOPHILS % (AUTO) 1.6 % (0-6); HEMATOCRIT 48.8 % (37.9-51.0); HEMOGLOBIN 16.6 g/dL (13.5-17.0); LYMPHOCYTES % (AUTO) 17.4 % (13-45); MEAN CORPUSCULAR HEMOGLOBIN 30.5 pg (27.0-33.4); MEAN CORPUSCULAR HGB CONC 34.1 g/dL (32.0-36.0); MEAN CORPUSCULAR VOLUME 89 fl (80-97); MONOCYTES % (AUTO) 14.8 % (3-13); PLATELET COUNT 209 10^3/uL (150-450); RED BLOOD COUNT 5.46 10^6/uL (4.35-5.55); RED CELL DISTRIBUTION WIDTH 14.4 % (11.5-14.0); TOTAL CELLS COUNTED % (AUTO) 100 %; WHITE BLOOD COUNT 8.9 10^3/uL (4.0-10.5)
[2019-04-02 13:03] LABS: ALANINE AMINOTRANSFERASE 25 U/L (21-72); ALBUMIN 4.2 g/dL (3.5-5.0); ALKALINE PHOSPHATASE 85 U/L (38-126); ANION GAP 11 (5-19); ASPARTATE AMINO TRANSFERASE 23 U/L (17-59); BILIRUBIN,DIRECT 0.3 mg/dL (0.0-0.4); BILIRUBIN,TOTAL 1.1 mg/dL (0.2-1.3); BLOOD UREA NITROGEN 17 mg/dL (7-20); CALCIUM 9.7 mg/dL (8.4-10.2); CARBON DIOXIDE 30 mmol/L (22-30); CHLORIDE 100 mmol/L (98-107); CREATINE KINASE 114 U/L (55-170); GLUCOSE 134 mg/dL (75-110); POTASSIUM 4.3 mmol/L (3.6-5.0); SODIUM 140.8 mmol/L (137-145); TOTAL PROTEIN 7.5 g/dL (6.3-8.2)
[2019-04-02 13:15] LABS: TROPONIN I < 0.012 ng/mL
--- NOTE | 2019-04-02 13:18 | ER Document Report ---
ED Respiratory Problem - General Chief Complaint: Breathing Difficulty Stated Complaint: BREATHING DIFFICULTY Time Seen by Provider: 04/02/19 11:51 Primary Care Provider: YARON LI PA-C [Primary Care Provider] - Follow up as needed Mode of Arrival: Ambulatory Information source: Patient, [facility] Records Notes: This 68-year-old male patient comes emergency room complaining of trouble breathing for 2 to 3 weeks. He reports it is worse when he is up walking about or doing anything exertional. It is present at rest but not as bad. He does notice swelling to his lower extremities for the last 4 to 5 years, the left is always worse than the right. He has been given medication, probably diuretics in the past when it was bad. He does have an occasional cough, it is generally nonproductive. He does see Dr. Abdi for his pulmonary medicine care. He has complained of some left-sided chest tightness and pressure associated with this. He has complained of feeling like his heartbeat is all for skipping a beat. He was sent from an urgent care for further evaluation. TRAVEL OUTSIDE OF THE [place] IN LAST 30 DAYS: No - Related Data Allergies/Adverse Reactions: tamsulosin [Tamsulosin] Allergy (Verified 12/27/18 10:14) URINARY FREQUENCY Past Medical History - General Information source: Patient - Social History Smoking Status: Former Smoker - Quit smoking December 27, 2018. Cigarette use (# per day): No Chew tobacco use (# tins/day): No Smoking Education Provided: No Frequency of alcohol use: None Drug Abuse: None Lives with: Alone Family History: DM, Hyperlipidemia, Hypertension Patient has suicidal ideation: No Patient has homicidal ideation: No - Past Medical History Cardiac Medical History: Reports: Hx Hypertension Pulmonary Medical History: Reports: Hx COPD Endocrine Medical History: Reports: Hx Diabetes Mellitus Type 2 Musculoskeletal Medical History: Reports Hx Musculoskeletal Deformity, Reports Hx Musculoskeletal Trauma Skin Medical History: Reports Hx Cellulitis, Reports Hx MRSA Infectious Medical History: Reports: Hx MRSA Past Surgical History: Reports: Hx Orthopedic Surgery - right knee surgery for MRSA septic joint, Other - Incision and drainage of abdominal wall MRSA abscesses - Immunizations Immunizations up to date: No Hx Diphtheria, Pertussis, Tetanus Vaccination: No Hx Pneumococcal Vaccination: 11/02/16 Review of Systems - Review of Systems Constitutional: No symptoms reported EENT: No symptoms reported Cardiovascular: Edema Respiratory: See HPI, Short of breath Gastrointestinal: No symptoms reported Genitourinary: No symptoms reported Musculoskeletal: No symptoms reported Skin: No symptoms reported Hematologic/Lymphatic: No symptoms reported Neurological/Psychological: No symptoms reported Physical Exam - Vital signs Vitals: Temp Pulse BP Pulse Ox 97.3 F 99 171/62 H 93 04/02/19 11:47 04/02/19 11:47 04/02/19 11:47 04/02/19 11:47 Interpretation: Hypertensive - General General appearance: Appears well, Alert In distress: None - HEENT Head: Normocephalic, Atraumatic Eyes: Normal Pupils: PERRL Neck: Normal - Respiratory Respiratory status: No respiratory distress Chest status: Nontender Breath sounds: Nonproductive cough. No: Rhonchi, Wheezing Chest palpation: Normal - Cardiovascular Rhythm: Regular Heart sounds: Normal auscultation Murmur: No - Abdominal Inspection: Obese Distension: No distension Bowel sounds: Normal Tenderness: Nontender - Back Back: Normal - Extremities General upper extremity: Normal inspection General lower extremity: Edema - 1+ edema of the right lower extremity, 1-2+ edema to the left lower extremity - Neurological Neuro grossly intact: Yes - Psychological Associated symptoms: Normal affect, Normal mood - Skin Skin Temperature: Warm Skin Moisture: Dry Skin Color: Normal Course - Re-evaluation Re-evalutation: 04/02/19 14:23 The patient's chest x-ray shows chronic changes of COPD with nothing acute. The d-dimer is not elevated. The BNP is in a low normal range. Auscultation of the chest does not reveal wheezes. The patient's pulse ox remains in the 92 to 93% range. DuoNeb treatment did not change how his breathing sounded on auscultation, and he did not seem to think it made a difference in how it felt. I suspect the patient's progressive dyspnea on exertion is related to his COPD and his lifelong smoking. He is encouraged to follow-up with Dr. Abdi this week, even though he has an appointment on 04/12/2019. - Vital Signs Vital signs: Temp Pulse Resp BP Pulse Ox 97.3 F 81 17 122/74 99 04/02/19 11:47 04/02/19 12:34 04/02/19 14:01 04/02/19 14:01 04/02/19 14:01 - Laboratory Result Diagrams: 04/02/19 12:05 04/02/19 12:05 Laboratory results interpreted by me: 04/02/19 04/02/19 12:05 12:05 RDW 14.4 H Monocytes % 14.8 H Glucose 134 H - Diagnostic Test Radiology reviewed: Image reviewed, Reports reviewed - Chest x-ray does not show any acute cardiopulmonary process. There are chronic changes of COPD. - EKG Interpretation by Me EKG shows normal: Sinus rhythm, [place], Intervals, QRS Complexes, ST-T Waves Rate: Normal - 82 Rhythm: NSR Discharge - Discharge Clinical Impression: Dyspnea on exertion COPD (chronic obstructive pulmonary disease) Qualifiers: COPD type: unspecified COPD Qualified Code(s): J44.9 - Chronic obstructive pulmonary disease, unspecified Condition: Stable Disposition: HOME, SELF-CARE Additional Instructions: Your evaluation today did not show any evidence of congestive heart failure, blood clots or pulmonary embolus, or pneumonia. I suspect your worsening shortness of breath is related to a progression of your COPD. You should follow-up with Dr. Abdi this week for further evaluation. Call his office Thursday morning to try to move your appointment up to this week. Continue all your regular medications. RETURN TO THE EMERGENCY ROOM IF ANY NEW OR WORSENING SYMPTOMS. Referrals: YARON LI PA-C [Primary Care Provider] - Follow up as needed JASON ABDI MD [ACTIVE STAFF] - 04/04/19 (Call Thursday to schedule an appointment as soon as you can get in.)
[2019-04-02] MEDS ORDERED: METHYLPREDNISOLONE INJ 125 MG/2 ML SDV IV ONE (13:19)
[2019-04-02] MEDS ORDERED: IPRATROPIUM/ALBUTEROL 0.5-2.5 MG/3 ML AMPUL NEB ONE (13:19)
[2019-04-02 14:53] VITALS: BP 127/73
--- NOTE | 2019-04-02 23:48 | EKG REPORT ---
SEVERITY:- NORMAL ECG - SINUS RHYTHM : Confirmed by: Masha Ulloa MD 02-Apr-2019 23:46:39
== END 2019-04-02 14:58 | disposition home or self-care (01) ==
LOC: ER 11:40
DX: J44.9 Chronic obstructive pulmonary disease, unspecified (principal); R06.09 Other forms of dyspnea; R07.89 Other chest pain; R00.2 Palpitations; I10 Essential (primary) hypertension; E11.9 Type 2 diabetes mellitus without complications; Z86.14 Personal history of Methicillin resistant Staphylococcus aureus infection
CPT/HCPCS: 93005; 94640; 99285; 96374; 36415; 82553; 82550; 83735; 84443; 85025; 80053; 84484; 85379; 83880; 71046; 93010; A9270 ×2; J2930; J7620

== ENCOUNTER 2020-01-05 09:32 | Inpatient (IN) | payer MEDICARE, BC ==
[2020-01-05] MEDS ORDERED: METHYLPREDNISOLONE INJ 125 MG/2 ML SDV IV ONE (10:11)
[2020-01-05] MEDS ORDERED: IPRATROPIUM/ALBUTEROL 0.5-2.5 MG/3 ML AMPUL NEB ONE ×2 (10:11→11:45)
--- NOTE | 2020-01-05 10:13 | ER Document Report ---
ED Medical Screen (RME) - General Chief Complaint: Cold Symptoms Stated Complaint: COLD/COUGH/CONGESTION Time Seen by Provider: 01/05/20 10:06 Primary Care Provider: YARON LI PA-C [Primary Care Provider] - Follow up as needed Notes: HPI: 69-year-old male with COPD history who does use oxygen as needed at home presenting for 5 days of progressively worsening shortness of breath with exertion. No fever no chest pain. Has an albuterol inhaler at home does not use of the medicines for COPD. I have greeted and performed a rapid initial assessment of this patient. A comprehensive ED assessment and evaluation of the patient, analysis of test results and completion of the medical decision making process will be conducted by additional ED providers PHYSICAL EXAMINATION: GENERAL: Well-appearing, well-nourished and in mild acute distress. HEAD: Atraumatic, normocephalic. EYES: sclera anicteric, conjunctiva are normal. ENT: Moist mucous membranes. NECK: Normal range of motion LUNGS: Slightly increased work of breathing. Expiratory wheezing in all lung urbina. Pulse oximetry 91% on room air mildly hypoxic HEART: 2+ radial pulses bilaterally, regular rate and rhythm ABD: limited by positioning for exam in triage. EXTREMITIES: no pitting or edema. No cyanosis. NEUROLOGICAL: No focal neurological deficits. Moves all extremities spontaneously and on command. PSYCH: Normal mood, normal affect. SKIN: Warm, Dry, normal turgor, no rashes or lesions noted. TRAVEL OUTSIDE OF THE [place] IN LAST 30 DAYS: No - Related Data Allergies/Adverse Reactions: No Known Allergies Allergy (Verified 01/05/20 10:04) Past Medical History - Past Medical History Cardiac Medical History: Reports: Hx Hypertension Denies: Hx Heart Attack Pulmonary Medical History: Reports: Hx COPD Denies: Hx Asthma, Hx Bronchitis, Hx Pneumonia, Hx Tuberculosis Neurological Medical History: Denies: Hx Cerebrovascular Accident, Hx Seizures Endocrine Medical History: Reports: Hx Diabetes Mellitus Type 2 Renal/ Medical History: Denies: Hx Peritoneal Dialysis GI Medical History: Denies: Hx Hepatitis, Hx Hiatal Hernia, Hx Ulcer Musculoskeltal Medical History: Reports Hx Musculoskeletal Deformity, Reports Hx Musculoskeletal Trauma Skin Medical History: Reports Hx Cellulitis, Reports Hx MRSA Psychiatric Medical History: Denies: Hx Depression Infectious Medical History: Reports: Hx MRSA. Denies: Hx Hepatitis Past Surgical History: Reports: Hx Abdominal Surgery - remove MRSA, Hx Orthopedic Surgery - right knee surgery for MRSA septic joint, Other - Incision and drainage of abdominal wall MRSA abscesses. Denies: Hx Open Heart Surgery, Hx Pacemaker - Immunizations Immunizations up to date: No Hx Diphtheria, Pertussis, Tetanus Vaccination: No Physical Exam - Vital signs Vitals: Temp Pulse Resp BP Pulse Ox 98.0 F 110 H 16 175/67 H 91 L 01/05/20 09:35 01/05/20 09:35 01/05/20 09:35 01/05/20 09:35 01/05/20 09:35 Course - Vital Signs Vital signs: Temp Pulse Resp BP Pulse Ox 98.0 F 110 H 16 175/67 H 91 L 01/05/20 09:35 01/05/20 09:35 01/05/20 09:35 01/05/20 09:35 01/05/20 09:35 Doctor's Discharge - Discharge Referrals: YARON LI PA-C [Primary Care Provider] - Follow up as needed
[2020-01-05 10:33] LABS: ABSOLUTE BASOPHILS # (AUTO) 0.1 10^3/uL (0.0-0.2); ABSOLUTE EOSINOPHILS # (AUTO) 0.1 10^3/uL (0.0-0.6); ABSOLUTE MONOCYTES (AUTO) 1.4 10^3/uL (0.1-1.4); ABSOLUTE NEUT (AUTO) 7.6 10^3/uL (1.7-8.2); BASOPHILS % (AUTO) 0.8 % (0-2); EOSINOPHILS % (AUTO) 0.9 % (0-6); HEMATOCRIT 45.2 % (37.9-51.0); HEMOGLOBIN 15.5 g/dL (13.5-17.0); LYMPHOCYTES % (AUTO) 9.6 % (13-45); MEAN CORPUSCULAR HEMOGLOBIN 31.9 pg (27.0-33.4); MEAN CORPUSCULAR HGB CONC 34.3 g/dL (32.0-36.0); MEAN CORPUSCULAR VOLUME 93 fl (80-97); PLATELET COUNT 181 10^3/uL (150-450); RED BLOOD COUNT 4.86 10^6/uL (4.35-5.55); RED CELL DISTRIBUTION WIDTH 13.7 % (11.5-14.0); SEGMENTED NEUTROPHILS % (AUTO) 74.7 % (42-78); TOTAL CELLS COUNTED % (AUTO) 100 %; WHITE BLOOD COUNT 10.2 10^3/uL (4.0-10.5)
[2020-01-05 10:53] LABS: ALBUMIN 4.2 g/dL (3.5-5.0); ALKALINE PHOSPHATASE 85 U/L (38-126); ANION GAP 9 (5-19); ASPARTATE AMINO TRANSFERASE 21 U/L (17-59); BILIRUBIN,DIRECT 0.3 mg/dL (0.0-0.4); BILIRUBIN,TOTAL 1.2 mg/dL (0.2-1.3); BLOOD UREA NITROGEN 18 mg/dL (7-20); CARBON DIOXIDE 32 mmol/L (22-30); CHLORIDE 99 mmol/L (98-107); GLUCOSE 155 mg/dL (75-110); TOTAL PROTEIN 7.9 g/dL (6.3-8.2)
--- NOTE | 2020-01-05 10:56 | RADIOLOGY REPORT (SQ) ---
EXAM DESCRIPTION: CHEST 2 VIEWS COMPLETED DATE/TIME: 01/05/2020 9:24 am REASON FOR STUDY: sob COMPARISON: 04/02/2019, 07/22/2014 EXAM PARAMETERS: NUMBER OF VIEWS: two views TECHNIQUE: Digital Frontal and Lateral radiographic views of the chest acquired. RADIATION DOSE: NA LIMITATIONS: none FINDINGS: LUNGS AND PLEURA: Lungs are hyperinflated. No focal consolidation. No pleural effusion o r pneumothorax. MEDIASTINUM AND HILAR STRUCTURES: No masses or contour abnormalities. HEART AND VASCULAR STRUCTURES: Heart normal size. No evidence for failure. BONES: No acute findings. HARDWARE: None in the chest. OTHER: No other significant finding. IMPRESSION: Hyperinflated lungs which can be seen with obstructive lung disease. No acute cardiopul monary disease. TECHNICAL DOCUMENTATION: JOB ID: [id number] [email or web address] All Rights Reserved Reading location - IP/workstation name: [email or web address]
[2020-01-05 11:05] LABS: NT PRO BNP 798 pg/mL (<125)
[2020-01-05 11:08] LABS: TROPONIN I < 0.012 ng/mL
[2020-01-05] MEDS: MAGNESIUM SULFATE/D5W 1 GM/100 ML RTUPB IV SCH ×2 (12:26→13:24)
--- NOTE | 2020-01-05 13:09 | EKG REPORT ---
SEVERITY:- NORMAL ECG - SINUS RHYTHM : Confirmed by: Denzel Carrillo MD 05-Jan-2020 13:08:32
--- NOTE | 2020-01-05 14:55 | ER Document Report ---
Entered by SAMINA WOODARD SCRIBE 01/05/20 1045 Acting as scribe for:SELENA HARDY DO ED General - General Chief Complaint: Cough Stated Complaint: COLD/COUGH/CONGESTION Time Seen by Provider: 01/05/20 10:06 Information source: Patient Notes: This 69-year-old male patient presents to the emergency department today with complaints of a 6-day history of a cough with associated shortness of breath. Patient states his cough is productive with green sputum. Patient has tried at home nebulizer treatments with minimal relief. Patient states he is on home oxygen "a few hours a day" as well as CPAP at night. Patient denies any sick contacts or travel. TRAVEL OUTSIDE OF THE [place] IN LAST 30 DAYS: No - Related Data Allergies/Adverse Reactions: No Known Allergies Allergy (Verified 01/05/20 10:04) Past Medical History - General Information source: Patient - Social History Smoking Status: Former Smoker Cigarette use (# per day): No Chew tobacco use (# tins/day): No Frequency of alcohol use: None Drug Abuse: None Family History: DM, Hyperlipidemia, Hypertension Patient has suicidal ideation: No Patient has homicidal ideation: No - Past Medical History Cardiac Medical History: Reports: Hx Hypertension Pulmonary Medical History: Reports: Hx COPD, Hx Pneumonia Endocrine Medical History: Reports: Hx Diabetes Mellitus Type 2 Musculoskeletal Medical History: Reports Hx Musculoskeletal Deformity, Reports Hx Musculoskeletal Trauma Skin Medical History: Reports Hx Cellulitis, Reports Hx MRSA Infectious Medical History: Reports: Hx MRSA Past Surgical History: Reports: Hx Orthopedic Surgery - right knee surgery for MRSA septic joint, Other - Incision and drainage of abdominal wall MRSA abscesses - Immunizations Immunizations up to date: No Hx Diphtheria, Pertussis, Tetanus Vaccination: No Hx Pneumococcal Vaccination: 11/02/16 Review of Systems - Review of Systems Constitutional: denies: Fever EENT: No symptoms reported Cardiovascular: No symptoms reported Respiratory: See HPI, Cough, Short of breath, Sputum Gastrointestinal: No symptoms reported Genitourinary: No symptoms reported Male Genitourinary: No symptoms reported Musculoskeletal: No symptoms reported Skin: No symptoms reported Hematologic/Lymphatic: No symptoms reported Neurological/Psychological: No symptoms reported -: Yes All other systems reviewed and negative Physical Exam - Vital signs Vitals: Temp Pulse Resp BP Pulse Ox 98.0 F 110 H 16 175/67 H 91 L 01/05/20 09:35 01/05/20 09:35 01/05/20 09:35 01/05/20 09:35 01/05/20 09:35 - Notes Notes: Physical Exam: General: Alert. HEENT: Normocephalic. Atraumatic. PERRL. Extraocular movements intact. Oropharynx clear. Neck: Supple. Non-tender. Respiratory: No respiratory distress. Wheezing bilaterally. Cardiovascular: Regular rate and rhythm. Abdominal: Normal Inspection. Non-tender. No distension. Normal Bowel Sounds. Back: No gross abnormalities. Extremities: Moves all four extremities. Upper extremities: Normal inspection. Normal ROM. Lower extremities: Normal inspection. No edema. Normal ROM. Neurological: Normal cognition. AAOx4. Normal speech. Psychological: Normal affect. Normal Mood. Skin: Warm. Dry. Normal color. Course - Re-evaluation Re-evalutation: 01/05/20 14:42 Hospitalist agrees to admit patient to IMCU Patient presents with difficulty breathing. He wears oxygen at night. Consistent oxygen requirement today. Patient ambulated with his home nasal cannula and dropped his oxygen saturation below 88%. This was after treatment with DuoNeb, Solu-Medrol, and magnesium. He will require admission for COPD exacerbation. Patient is agreeable to this plan and stable at the time of admission. No acute findings on chest x-ray. - Vital Signs Vital signs: Temp Pulse Resp BP Pulse Ox 97.4 F 108 H 18 148/65 H 94 01/05/20 17:42 01/05/20 17:42 01/05/20 17:42 01/05/20 17:42 01/05/20 17:42 - Laboratory Result Diagrams: 01/05/20 10:15 01/05/20 10:15 Laboratory results interpreted by me: 01/05/20 01/05/20 01/05/20 10:15 10:15 10:15 Lymph % (Auto) 9.6 L [place] % (Auto) 14.0 H Carbon Dioxide 32 H Glucose 155 H NT-Pro-B Natriuret Pep 798 H Urine Protein Urine Glucose (UA) Urine Ketones Urine Urobilinogen 01/05/20 14:54 Lymph % (Auto) [place] % (Auto) Carbon Dioxide Glucose NT-Pro-B Natriuret Pep Urine Protein 30 H Urine Glucose (UA) 50 H Urine Ketones 20 H Urine Urobilinogen 4.0 H - Diagnostic Test Radiology reviewed: Reports reviewed Discharge - Discharge Clinical Impression: COPD exacerbation, Hypoxia Condition: Stable Disposition: ADMITTED INPATIENT Admitting Provider: Irma (Hospitalist) - Day Unit Admitted: IMCU I personally performed the services described in the documentation, reviewed and edited the documentation which was dictated to the scribe in my presence, and it accurately records my words and actions.
[2020-01-05] MEDS ORDERED: ACETAMINOPHEN 325 MG TABLET PO PRN (15:09)
[2020-01-05] MEDS ORDERED: PROMETHAZINE HCL INJ 25 MG/1 ML VIAL IV PRN (15:09)
[2020-01-05] MEDS ORDERED: OXYCODONE-ACETAMINOPHEN 5-325 MG TABLET PO PRN (15:09)
[2020-01-05 15:10] LABS: APPEARANCE,URINE CLEAR; BILIRUBIN,URINE NEGATIVE (NEGATIVE); COLOR,URINE YELLOW; GLUCOSE, URINE 50 mg/dL (NEGATIVE); KETONES,URINE 20 mg/dL (NEGATIVE); PROTEIN,URINE 30 mg/dL (NEGATIVE); URINE SPECIFIC GRAVITY 1.023
[2020-01-05 15:20] LABS: A TYPE INFLUENZA AG NEGATIVE (NEGATIVE); B INFLUENZA AG NEGATIVE (NEGATIVE)
--- NOTE | 2020-01-05 15:24 | PDOC H&P ---
History of Present Illness Admission Date/PCP: YARON LI PA-C History of Present Illness: GRISEL LOTT is a 69 year old male who for about 6 days now has had increased cough with sputum production that is green and thick. Is also complained of some slight fever and chills for the last several days. Patient stated he had a similar episode last year that required 4 days of hospitalization. Patient uses oxygen at home 2 L as needed, CPAP at night.. Patient has been using his neb ulizer at home but with little relief. White count is normal chest x-ray shows no acute infiltrates but I am going to put him on antibiotics because of the sputum production and fever and chills. . Past Medical History Cardiac Medical History: Reports: Hypertension Denies: Myocardial Infarction Pulmonary Medical History: Reports: Chronic Obstructive Pulmonary Disease (COPD), Pneumonia Denies: Asthma, Bronchitis, Tuberculosis Neurological Medical History: Denies: Seizures Endocrine Medical History: Reports: Diabetes Mellitus Type 2 GI Medical History: Denies: Hepatitis, Hiatal Hernia Psychiatric Medical History: Denies: Depression Hematology: Denies: Anemia, Sickle Cell Disease Infectious Medical History: Reports: Methicillin-Resistant Staph Aureus Past Surgical History Past Surgical History: Reports: Orthopedic Surgery - right knee surgery for MRSA septic joint, Other - Incision and drainage of abdominal wall MRSA abscesses Denies: Pacemaker Social History Smoking Status: Former Smoker Electronic Cigarette use?: No Frequency of Alcohol Use: None Hx Recreational Drug Use: No Drugs: None Hx Prescription Drug Abuse: No - Advance Directive Resuscitation Status: Full Code Family History Family History: DM, Hyperlipidemia, Hypertension Parental Family History Reviewed: No Children Family History Reviewed: No Sibling(s) Family History Reviewed.: No Medication/Allergy Home Medications: Lisinopril [Prinivil 10 mg Tablet] 40 mg PO DAILY 08/19/12 Metformin HCl [Glucophage 500 mg Tablet] 1,000 mg PO BID 08/19/12 Glimepiride 2 mg PO BID 01/20/18 Metoprolol Succinate 25 mg PO DAILY 01/20/18 Albuterol Sulfate [Albuterol Sulfate Hfa] 2 puff IH QIDP PRN 01/05/20 Fluticasone/Umeclidin/Vilanter [Trelegy 100-62.5-25 Mcg Ellipta 14 Dose/Dpi] 1 puff IH DAILY 01/05/20 Pioglitazone HCl [Actos 30 mg Tablet] 30 mg PO DAILY 01/05/20 Allergies/Adverse Reactions: No Known Allergies Allergy (Verified 01/05/20 10:04) Review of Systems Constitutional: PRESENT: chills, fever(s) Cardiovascular: ABSENT: chest pain, dyspnea on exertion, edema, orthropnea, palpitations Respiratory: PRESENT: cough, sputum Neurological: ABSENT: abnormal gait, abnormal speech, confusion, dizziness, focal weakness, syncope Psychiatric: ABSENT: anxiety, depression, homidical ideation, suicidal ideation Physical Exam Vital Signs: Temp Pulse Resp BP Pulse Ox 98.0 F 110 H 18 147/69 H 94 01/05/20 09:35 01/05/20 09:35 01/05/20 15:00 01/05/20 14:01 01/05/20 15:00 Intake & Output 01/04/20 01/05/20 01/06/20 06:59 06:59 06:59 Intake Total 197 Balance 197 Weight 117 kg General appearance: PRESENT: no acute distress Respiratory exam: PRESENT: decreased breath sounds, rhonchi Cardiovascular exam: PRESENT: RRR. ABSENT: diastolic murmur, rubs, systolic murmur Neurological exam: PRESENT: alert, awake, oriented to person, oriented to place, oriented to time, oriented to situation, CN II-XII grossly intact. ABSENT: motor sensory deficit Psychiatric exam: PRESENT: appropriate affect, normal mood. ABSENT: homicidal ideation, suicidal ideation Results Laboratory Results: 01/05/20 10:15 01/05/20 10:15 01/05/20 01/05/20 01/05/20 10:15 10:15 14:54 WBC 10.2 RBC 4.86 Hgb 15.5 Hct 45.2 MCV 93 MCH 31.9 MCHC 34.3 RDW 13.7 Plt Count 181 Seg Neutrophils % 74.7 Sodium 140.4 Potassium 4.0 Chloride 99 Carbon Dioxide 32 H Anion Gap 9 BUN 18 Creatinine 0.62 Est GFR ( Amer) > 60 Glucose 155 H Calcium 9.0 Total Bilirubin 1.2 AST 21 Alkaline Phosphatase 85 Total Protein 7.9 Albumin 4.2 Urine Color YELLOW Urine Appearance CLEAR Urine pH 5.0 Ur Specific [place] 1.023 Urine Protein 30 H Urine Glucose (UA) 50 H Urine Ketones 20 H Urine Blood NEGATIVE Urine RBC (Auto) 0 01/05/20 10:15 Troponin I < 0.012 NT-Pro-B Natriuret Pep 798 H Impressions: Chest X-Ray 01/05/20 10:10 IMPRESSION: Hyperinflated lungs which can be seen with obstructive lung disease. No acute cardiopulmonary disease. Assessment and Plan - Diagnosis (1) COPD exacerbation Is this a current diagnosis for this admission?: Yes (2) Hypoxia Is this a current diagnosis for this admission?: Yes (3) COPD with acute exacerbation Is this a current diagnosis for this admission?: Yes (4) Diabetes Is this a current diagnosis for this admission?: Yes (5) HTN (hypertension) Is this a current diagnosis for this admission?: Yes (6) ALEJANDRA (obstructive sleep apnea) Is this a current diagnosis for this admission?: Yes (7) Obesity Is this a current diagnosis for this admission?: Yes - Plan Summary Summary: Patient does not appear to be septic or toxic. Going to put him in for gentle hydration, pulmonary toiletry, IV antibiotics,. Anticipate 3 to 5 days of hospitalization.. Patient appears to have a COPD exacerbation, acute active infiltrates on his chest x-ray. - Time Time Spent with patient: 35 or more minutes
[2020-01-05] MEDS: IPRATROPIUM/ALBUTEROL 0.5-2.5 MG/3 ML AMPUL NEB SCH ×2 (15:32→19:42)
[2020-01-05] MEDS: LEVOFLOXACIN 750 MG/D5W RTU 750 MG/150 ML RTUPB IV SCH (16:04)
[2020-01-05] MEDS: GLIMEPIRIDE 1 MG TABLET PO SCH (17:20)
[2020-01-05] MEDS: METFORMIN HCL 500 MG TABLET PO SCH (17:21)
[2020-01-05] MEDS: METHYLPREDNISOLONE INJ 40 MG/1 ML SDV IV SCH (17:21)
[2020-01-05] MEDS ORDERED: INFLUENZA QUAD (6MOS+) 2019-20 VAC 0.5 ML SYR IM ONE (17:46)
[2020-01-06] MEDS: METHYLPREDNISOLONE INJ 40 MG/1 ML SDV IV SCH ×2 (06:04→17:27)
[2020-01-06 06:21] LABS: ABSOLUTE LYMPHOCYTES (AUTO) 0.6 10^3/uL (0.5-4.7); ABSOLUTE MONOCYTES (AUTO) 0.5 10^3/uL (0.1-1.4); ABSOLUTE NEUT (AUTO) 8.7 10^3/uL (1.7-8.2); BASOPHILS % (AUTO) 0.2 % (0-2); HEMATOCRIT 40.7 % (37.9-51.0); LYMPHOCYTES % (AUTO) 6.1 % (13-45); MEAN CORPUSCULAR HEMOGLOBIN 32.1 pg (27.0-33.4); MEAN CORPUSCULAR HGB CONC 34.5 g/dL (32.0-36.0); MEAN CORPUSCULAR VOLUME 93 fl (80-97); MONOCYTES % (AUTO) 4.9 % (3-13); PLATELET COUNT 169 10^3/uL (150-450); RED BLOOD COUNT 4.36 10^6/uL (4.35-5.55); RED CELL DISTRIBUTION WIDTH 13.7 % (11.5-14.0); SEGMENTED NEUTROPHILS % (AUTO) 88.8 % (42-78); TOTAL CELLS COUNTED % (AUTO) 100 %; WHITE BLOOD COUNT 9.8 10^3/uL (4.0-10.5)
[2020-01-06 06:40] LABS: ANION GAP 9 (5-19); BLOOD UREA NITROGEN 22 mg/dL (7-20); CALCIUM 8.8 mg/dL (8.4-10.2); CARBON DIOXIDE 29 mmol/L (22-30); CHLORIDE 101 mmol/L (98-107); GLUCOSE 245 mg/dL (75-110); POTASSIUM 4.5 mmol/L (3.6-5.0)
[2020-01-06] MEDS: IPRATROPIUM/ALBUTEROL 0.5-2.5 MG/3 ML AMPUL NEB SCH ×4 (08:09→19:32)
[2020-01-06] MEDS: GLIMEPIRIDE 1 MG TABLET PO SCH ×2 (08:27→17:28)
[2020-01-06] MEDS: METFORMIN HCL 500 MG TABLET PO SCH ×2 (08:27→17:27)
[2020-01-06] MEDS: ENOXAPARIN SODIUM INJ 40 MG/0.4 ML DISP.SYRIN SUBCUT SCH (10:10)
[2020-01-06] MEDS: ATORVASTATIN CALCIUM 10 MG TABLET PO SCH (10:10)
[2020-01-06] MEDS: FLUTICASONE/UMECLIDIN/VILANTER 100-62.5-25 MCG/DOSE IH SCH (10:10)
[2020-01-06] MEDS: METOPROLOL SUCCINATE 25 MG TAB.SR.24H PO SCH (10:10)
[2020-01-06] MEDS: PIOGLITAZONE HCL 30 MG TABLET PO SCH (10:10)
[2020-01-06] MEDS: LISINOPRIL 10 MG TABLET PO SCH (10:11)
--- NOTE | 2020-01-06 10:35 | PDOC PROGRESS REPORT ---
Subjective Progress Note for:: 01/06/20 Reason For Visit: COPD EXACERBATION,DIABETES,HYPERTENSION,OBESITY 01/06/2020 Patient admitted for COPD exacerbation, also has diabetes and hypertension Physical Exam Vital Signs: Temp Pulse Resp BP Pulse Ox 97.6 F 75 16 122/53 L 93 01/06/20 07:27 01/06/20 08:09 01/06/20 08:09 01/06/20 07:27 01/06/20 08:09 Intake & Output 01/05/20 01/06/20 01/07/20 06:59 06:59 06:59 Intake Total 347 Balance 347 Weight 118.1 kg General appearance: PRESENT: no acute distress Respiratory exam: PRESENT: rhonchi, wheezes Cardiovascular exam: PRESENT: RRR. ABSENT: diastolic murmur, rubs, systolic murmur Neurological exam: PRESENT: alert, awake, oriented to person, oriented to place, oriented to time, oriented to situation, CN II-XII grossly intact. ABSENT: motor sensory deficit Psychiatric exam: PRESENT: appropriate affect, normal mood. ABSENT: homicidal ideation, suicidal ideation Results Laboratory Results: 01/06/20 05:40 01/06/20 05:40 01/05/20 01/05/20 01/05/20 10:15 10:15 14:54 WBC 10.2 RBC 4.86 Hgb 15.5 Hct 45.2 MCV 93 MCH 31.9 MCHC 34.3 RDW 13.7 Plt Count 181 Seg Neutrophils % 74.7 Sodium 140.4 Potassium 4.0 Chloride 99 Carbon Dioxide 32 H Anion Gap 9 BUN 18 Creatinine 0.62 Est GFR ( Amer) > 60 Glucose 155 H Calcium 9.0 Total Bilirubin 1.2 AST 21 Alkaline Phosphatase 85 Total Protein 7.9 Albumin 4.2 Urine Color YELLOW Urine Appearance CLEAR Urine pH 5.0 Ur Specific [place] 1.023 Urine Protein 30 H Urine Glucose (UA) 50 H Urine Ketones 20 H Urine Blood NEGATIVE Urine RBC (Auto) 0 01/06/20 01/06/20 05:40 05:40 WBC 9.8 RBC 4.36 Hgb 14.0 Hct 40.7 MCV 93 MCH 32.1 MCHC 34.5 RDW 13.7 Plt Count 169 Seg Neutrophils % 88.8 H Sodium 138.6 Potassium 4.5 Chloride 101 Carbon Dioxide 29 Anion Gap 9 BUN 22 H Creatinine 0.55 Est GFR ( Amer) > 60 Glucose 245 H Calcium 8.8 Total Bilirubin AST Alkaline Phosphatase Total Protein Albumin Urine Color Urine Appearance Urine pH Ur Specific [place] Urine Protein Urine Glucose (UA) Urine Ketones Urine Blood Urine RBC (Auto) 01/05/20 10:15 Troponin I < 0.012 NT-Pro-B Natriuret Pep 798 H Impressions: Chest X-Ray 01/05/20 10:10 IMPRESSION: Hyperinflated lungs which can be seen with obstructive lung disease. No acute cardiopulmonary disease. Assessment and Plan - Diagnosis (1) COPD exacerbation Is this a current diagnosis for this admission?: Yes (2) Hypoxia Is this a current diagnosis for this admission?: Yes (3) COPD with acute exacerbation Is this a current diagnosis for this admission?: Yes (4) Diabetes Is this a current diagnosis for this admission?: Yes (5) HTN (hypertension) Is this a current diagnosis for this admission?: Yes (6) ALEJANDRA (obstructive sleep apnea) Is this a current diagnosis for this admission?: Yes (7) Obesity Is this a current diagnosis for this admission?: Yes - Plan Summary Summary: Patient does not appear to be septic or toxic. Going to put him in for gentle hydration, pulmonary toiletry, IV antibiotics,. Anticipate 3 to 5 days of ho spitalization.. Patient appears to have a COPD exacerbation, acute active infiltrates on his chest x-ray. 01/06/2020 Patient states he is feeling slightly better and breathing easier today Chest x-ray on admission showed only hyperinflation with no acute findings Temperature 97.9 pulse 79 blood pressure 117/52. [place] saturation 93% on 1 to 2 L nasal cannula Close levels between 155 and 333. Patient is on his diabetes medicines White blood cell count remains normal BNP 798 Significant medications include Levaquin IV daily, day #2 solu Medrol 40 mg IV every 12 hours, day #2 Continue same course - Time Time Spent with patient: 25-34 minutes
[2020-01-06] MEDS: LEVOFLOXACIN 750 MG/D5W RTU 750 MG/150 ML RTUPB IV SCH (17:27)
[2020-01-07] MEDS: METHYLPREDNISOLONE INJ 40 MG/1 ML SDV IV SCH ×2 (06:02→18:30)
[2020-01-07] MEDS: IPRATROPIUM/ALBUTEROL 0.5-2.5 MG/3 ML AMPUL NEB SCH ×4 (08:24→19:39)
[2020-01-07] MEDS: GLIMEPIRIDE 1 MG TABLET PO SCH ×2 (08:40→18:30)
[2020-01-07] MEDS: METFORMIN HCL 500 MG TABLET PO SCH ×2 (08:40→18:30)
[2020-01-07] MEDS: ENOXAPARIN SODIUM INJ 40 MG/0.4 ML DISP.SYRIN SUBCUT SCH (10:38)
[2020-01-07] MEDS: FLUTICASONE/UMECLIDIN/VILANTER 100-62.5-25 MCG/DOSE IH SCH (10:44)
[2020-01-07] MEDS: PIOGLITAZONE HCL 30 MG TABLET PO SCH (10:44)
[2020-01-07] MEDS: METOPROLOL SUCCINATE 25 MG TAB.SR.24H PO SCH (10:44)
[2020-01-07] MEDS: LISINOPRIL 10 MG TABLET PO SCH (10:44)
[2020-01-07] MEDS: ATORVASTATIN CALCIUM 10 MG TABLET PO SCH (10:44)
--- NOTE | 2020-01-07 12:12 | PDOC PROGRESS REPORT ---
Subjective Progress Note for:: 01/07/20 Reason For Visit: COPD EXACERBATION,DIABETES,HYPERTENSION,OBESITY 01/07/2020 COPD exacerbation, home oxygen dependency Physical Exam Vital Signs: Temp Pulse Resp BP Pulse Ox 97.5 F 75 16 147/68 H 96 01/07/20 08:01 01/07/20 08:25 01/07/20 08:25 01/07/20 08:01 01/07/20 08:25 Intake & Output 01/06/20 01/07/20 01/08/20 06:59 06:59 07:59 Intake Total 347 1850 150 Balance 347 1850 150 Weight 118.1 kg 118.1 kg General appearance: PRESENT: no acute distress, other - Clinically patient appears to be doing much better Respiratory exam: PRESENT: wheezes Cardiovascular exam: PRESENT: RRR. ABSENT: diastolic murmur, rubs, systolic murmur Neurological exam: PRESENT: alert, awake, oriented to person, oriented to place, oriented to time, oriented to situation, CN II-XII grossly intact. ABSENT: motor sensory deficit Psychiatric exam: PRESENT: appropriate affect, normal mood. ABSENT: homicidal ideation, suicidal ideation Results Laboratory Results: 01/06/20 05:40 01/06/20 05:40 01/05/20 15:58 Sputum Gram Stain - Final 01/05/20 10:15 Troponin I < 0.012 NT-Pro-B Natriuret Pep 798 H Impressions: Chest X-Ray 01/05/20 10:10 IMPRESSION: Hyperinflated lungs which can be seen with obstructive lung disease. No acute cardiopulmonary disease. Assessment and Plan - Diagnosis (1) COPD exacerbation Is this a current diagnosis for this admission?: Yes (2) Hypoxia Is this a current diagnosis for this admission?: Yes (3) COPD with acute exacerbation Is this a current diagnosis for this admission?: Yes (4) Diabetes Is this a current diagnosis for this admission?: Yes (5) HTN (hypertension) Is this a current diagnosis for this admission?: Yes (6) ALEJANDRA (obstructive sleep apnea) Is this a current diagnosis for this admission?: Yes (7) Obesity Is this a current diagnosis for this admission?: Yes - Plan Summary Summary: Patient does not appear to be septic or toxic. Going to put him in for gentle hydration, pulmonary toiletry, IV antibiotics,. Anticipate 3 to 5 days of hospitalization.. Patient appears to have a COPD exacerbation, acute active infiltrates on his chest x-ray. 01/06/2020 Patient states he is feeling slightly better and breathing easier today Chest x-ray on admission showed only hyperinflation with no acute findings Temperature 97.9 pulse 79 blood pressure 117/52. [place] saturation 93% on 1 to 2 L nasal cannula Close levels between 155 and 333. Patient is on his diabetes medicines White blood cell count remains normal BNP 798 Significant medications include Levaquin IV daily, day #2 solu Medrol 40 mg IV every 12 hours, day #2 Continue same course 01/07/2020 Temperature 97.5 pulse of 75, blood pressure 147/68, O2 sat 96% on 2 L nasal cannula CBC is normal Patient's sputum is growing out strep pneumoniae, however blood cultures are negative x2, and patient has a normal chest x-ray, a normal white count Because patient however does have a chronic pulmonary condition I am going to keep him on the Levaquin a total of 7 days. This is day 3 I anticipate discharging patient home tomorrow on p.o. Levaquin Also on a Medrol Dosepak Patient seems comfortable with this plan Patient does use oxygen at home as well as CPAP - Time Time Spent with patient: 25-34 minutes
[2020-01-07] MEDS: LEVOFLOXACIN 750 MG/D5W RTU 750 MG/150 ML RTUPB IV SCH (18:30)
[2020-01-08] MEDS: METHYLPREDNISOLONE INJ 40 MG/1 ML SDV IV SCH (05:07)
[2020-01-08] MEDS: IPRATROPIUM/ALBUTEROL 0.5-2.5 MG/3 ML AMPUL NEB SCH ×2 (07:57→12:20)
[2020-01-08] MEDS: METFORMIN HCL 500 MG TABLET PO SCH (08:29)
[2020-01-08] MEDS: GLIMEPIRIDE 1 MG TABLET PO SCH (08:29)
[2020-01-08] MEDS: ENOXAPARIN SODIUM INJ 40 MG/0.4 ML DISP.SYRIN SUBCUT SCH (09:57)
[2020-01-08] MEDS: LISINOPRIL 10 MG TABLET PO SCH (09:59)
[2020-01-08] MEDS: ATORVASTATIN CALCIUM 10 MG TABLET PO SCH (09:59)
[2020-01-08] MEDS: PIOGLITAZONE HCL 30 MG TABLET PO SCH (09:59)
[2020-01-08] MEDS: METOPROLOL SUCCINATE 25 MG TAB.SR.24H PO SCH (09:59)
[2020-01-08] MEDS: FLUTICASONE/UMECLIDIN/VILANTER 100-62.5-25 MCG/DOSE IH SCH (09:59)
[2020-01-08 12:07] VITALS: BP 148/65
--- NOTE | 2020-01-08 14:17 | CDI QUERY ---
CDI Query CDI Review: Dear Provider: To better reflect your patients severity of illness, morbidity, and resource utilization Please specify and document in the Progress Notes and Discharge Summary if you are monitoring / treating / evaluating any of the following conditions: Query Clinical indicators Chronic respiratory failure with O2 dependent Chronic respiratory failure PRN O2 usage with chronic respiratory failure PRN O2 usage without chronic respiratory failure Other Undetermined Per ED Note: Patient states he is on home oxygen "a few hours a day" as well as CPAP at night. Per Progress Notes: 01/07/2020 COPD exacerbation, home oxygen dependency Patient does use oxygen at home as well as CPAP Chest X-Ray 01/05/20 10:10 IMPRESSION: Hyperinflated lungs which can be seen with obstructive lung disease. No acute cardiopulmonary disease. Assessment and Plan (2) Hypoxia Is this a current diagnosis for this admission?: Yes The terms probable, suspected, likely, possible or still to be ruled out may be used if you are unable to determine the exact nature of a condition. Thank you, Clinical Documentation Physician Advisors PETROS Polanco RN, BSN RN [email or web address] Office [phone] Office [phone]
== END 2020-01-08 13:05 | disposition home or self-care (01) | DRG 192 ==
LOC: ER 09:32 → EH 16:00 → 3S 17:33
PROVIDERS: ADMIT Hospitalist; ATTEND Hospitalist
DX: J44.1 Chronic obstructive pulmonary disease with (acute) exacerbation (principal); R09.02 Hypoxemia; I10 Essential (primary) hypertension; E11.8 Type 2 diabetes mellitus with unspecified complications; G47.33 Obstructive sleep apnea (adult) (pediatric); Z86.14 Personal history of Methicillin resistant Staphylococcus aureus infection; Z79.84 Long term (current) use of oral hypoglycemic drugs; Z79.51 Long term (current) use of inhaled steroids; Z79.899 Other long term (current) drug therapy
CPT/HCPCS: 36415; 71046; 80048; 80053; 81001; 82962; 83880; 84484; 85025; 87040; 87070; 87077; 87186; 87205; 87804; 93005; 93010; 94640; 96365; 96366; 96375; 99285; J1650; J1956; J2920; J2930; J3475; J3490; J7620

== ENCOUNTER 2020-03-26 11:44 | Emergency (ER) | payer MEDICARE, BC ==
--- NOTE | 2020-03-26 14:19 | ER Document Report ---
ED General - General Chief Complaint: Leg Swelling Stated Complaint: LEG SWELLING Time Seen by Provider: 03/26/20 13:43 Primary Care Provider: YARON LI PA-C [Primary Care Provider] - Follow up tomorrow Mode of Arrival: Ambulatory Information source: Patient Notes: 69-year-old male with history of COPD CHF diabetes hypertension presents today with complaints that his legs have been swelling. He reports he started swelling back in January. He was evaluated by his primary care provider at the beginning of March and placed on Lasix and potassium. He reports his legs go down at night but swelling returns during the day. 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 Patient reports he has been eating drinking voiding bowel movement as normal. Reports urinary frequency at night but that is nothing new. Reports he gets short of breath walking around but also reports is not new. Reports he sees his supervisor agricultural education next appointment will be April 04. Patient is here due to the swelling of his legs during the day when he is just sitting there but they go down at night. He denies any fever vomiting diarrhea chest pain. TRAVEL OUTSIDE OF THE [place] 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 Lives with: Family Family History: DM, Hyperlipidemia, Hypertension Patient has homicidal ideation: No - Past Medical History Cardiac Medical History: Reports: Hx Congestive Heart Failure, Hx Hypertension Denies: Hx Heart Attack Pulmonary Medical History: Reports: Hx COPD, Hx Pneumonia Denies: Hx Asthma, Hx Bronchitis, Hx Tuberculosis Neurological Medical History: Denies: Hx Cerebrovascular Accident, Hx Seizures Endocrine Medical History: Reports: Hx Diabetes Mellitus Type 2 Renal/ Medical History: Denies: Hx Peritoneal Dialysis GI Medical History: Denies: Hx Hepatitis, Hx Hiatal Hernia, Hx Ulcer Musculoskeletal Medical History: Reports Hx Musculoskeletal Deformity, Reports Hx Musculoskeletal Trauma Skin Medical History: Reports Hx Cellulitis, Reports Hx MRSA Psychiatric Medical History: Denies: Hx Depression Infectious Medical History: Reports: Hx MRSA. Denies: Hx Hepatitis Past Surgical History: Reports: Hx Abdominal Surgery - remove MRSA, Hx Orthopedic Surgery - right knee surgery for MRSA septic joint, Other - Incision and drainage of abdominal wall MRSA abscesses. Denies: Hx Open Heart Surgery, Hx Pacemaker - Immunizations Immunizations up to date: No Hx Diphtheria, Pertussis, Tetanus Vaccination: No Hx Pneumococcal Vaccination: 11/02/16 Review of Systems - Review of Systems Notes: Review HPI for review of systems., All other systems negative Physical Exam - Vital signs Vitals: Temp 97.6 F 03/26/20 11:44 - General General appearance: Appears well, Alert In distress: None - HEENT Head: Normocephalic Eyes: Normal Conjunctiva: Normal Extraocular movements intact: Yes Ears: Normal External canal: Normal Tympanic membrane: Normal Nasal: Normal Mouth/Lips: Normal Mucous membranes: Moist Pharynx: Normal. No: Erythema, Exudate, Tonsillar hypertrophy Neck: Normal, Supple. No: Lymphadenopathy - Respiratory Respiratory status: No respiratory distress Chest status: Nontender Breath sounds: Normal Chest palpation: Normal - Cardiovascular Rhythm: Regular Heart sounds: Normal auscultation Murmur: No - Abdominal Inspection: Normal Distension: No distension Bowel sounds: Normal Tenderness: Nontender Organomegaly: No organomegaly - Extremities General upper extremity: Normal ROM General lower extremity: Normal ROM Thigh: Other - Erythema to the left inner thigh Ankle: Edema - Neurological Neuro grossly intact: Yes Cognition: Normal Orientation: AAOx4 [place] Coma Scale Eye Opening: Spontaneous Stephanie Coma Scale Verbal: Oriented Stephanie Coma Scale Motor: Obeys Commands [place] Coma Scale Total: 15 Speech: Normal - Psychological Associated symptoms: Normal affect, Normal mood - Skin Skin Temperature: Warm Skin Moisture: Dry Skin Color: Normal Skin Turgor: Edematous - Bilateral lower extremity edema, cap refill less than 3 seconds, pedal pulse + 2 Course - Re-evaluation Re-evalutation: 03/26/20 16:01 Labs unremarkable. BNP 340. Chest x-ray negative. Doppler negative per tech. Patient was instructed on the importance of follow-up with his provider tomorrow to discuss an increase in the Lasix as indicated. He was also instructed on the importance of raising his legs when he sitting down to decrease his swelling. He verbalized understanding to all instructions. Respiratory rate even unlabored no distress. Chest X-Ray 03/26/20 14:09 IMPRESSION: NO ACUTE RADIOGRAPHIC FINDING IN THE CHEST. Laboratory 03/26/20 03/26/20 03/26/20 13:05 13:05 13:05 WBC 5.5 RBC 4.73 Hgb 14.8 Hct 43.7 MCV 92 MCH 31.3 MCHC 33.9 RDW 14.5 H Plt Count 210 Lymph % (Auto) 23.5 [place] % (Auto) 12.4 Eos % (Auto) 2.1 Baso % (Auto) 1.0 Absolute Neuts (auto) 3.3 Absolute Lymphs (auto) 1.3 Absolute Monos (auto) 0.7 Absolute Eos (auto) 0.1 Absolute Basos (auto) 0.1 Seg Neutrophils % 61.0 Sodium 138.3 Potassium 4.5 Chloride 99 Carbon Dioxide 31 H Anion Gap 8 BUN 25 H Creatinine 0.63 Est GFR ( Amer) > 60 Est GFR (MDRD) Non-Af > 60 Glucose 156 H Calcium 9.6 Total Bilirubin 0.6 Direct Bilirubin 0.2 Neonat Total Bilirubin Not Reportable Neonat Direct Bilirubin Not Reportable Neonat Indirect Bili Not Reportable AST 26 ALT 23 Alkaline Phosphatase 70 NT-Pro-B Natriuret Pep 340 H Total Protein 7.4 Albumin 4.1 03/26/20 17:15 Chest X-Ray 03/26/20 14:09 IMPRESSION: NO ACUTE RADIOGRAPHIC FINDING IN THE CHEST. - Vital Signs Vital signs: Temp Pulse Resp BP Pulse Ox 97.5 F 82 20 168/75 H 95 03/26/20 16:58 03/26/20 16:58 03/26/20 16:58 03/26/20 16:58 03/26/20 16:58 - Laboratory Result Diagrams: 03/26/20 13:05 03/26/20 13:05 Laboratory results interpreted by me: 03/26/20 03/26/20 03/26/20 13:05 13:05 13:05 RDW 14.5 H Carbon Dioxide 31 H BUN 25 H Glucose 156 H NT-Pro-B Natriuret Pep 340 H - Diagnostic Test Radiology reviewed: Reports reviewed Discharge - Discharge Clinical Impression: Edema, peripheral Condition: Stable Disposition: HOME, SELF-CARE Instructions: Edema, Peripheral ([facility]) Additional Instructions: *You have been evaluated for swelling in your legs, peripheral edema *Follow-up with your primary care provider tomorrow, Yaron Li. Let Ms Li know that you have been to the emergency department today so she can look up your labs and discuss your current medications. *Elevate your legs as often as possible. *Return to the emergency department with worsening symptoms, concerns, needs Forms: Elevated Blood Pressure Referrals: YARON LI PA-C [Primary Care Provider] - Follow up tomorrow
--- NOTE | 2020-03-26 14:34 | RADIOLOGY REPORT (SQ) ---
EXAM DESCRIPTION: CHEST 2 VIEWS IMAGES COMPLETED DATE/TIME: 03/26/2020 2:22 pm REASON FOR STUDY: hx chf, swelling COMPARISON: 01/05/2020. EXAM PARAMETERS: NUMBER OF VIEWS: two views TECHNIQUE: Digital Frontal and Lateral radiographic views of the chest acquired. RADIATION DOSE: NA LIMITATIONS: none FINDINGS: LUNGS AND PLEURA: Mild basilar atelectasis/ scarring. No infiltrates, masses or pneumotho rax. No pleural effusion. MEDIASTINUM AND HILAR STRUCTURES: No masses or contour abnormalities. HEART AND VASCULAR STRUCTURES: Heart normal size. No evidence for failure. BONES: No acute findings. HARDWARE: None in the chest. OTHER: No other significant finding. IMPRESSION: NO ACUTE RADIOGRAPHIC FINDING IN THE CHEST. TECHNICAL DOCUMENTATION: JOB ID: [id number] 2010 [employer]- All Rights Reserved Reading location - IP/workstation name: [email or web address]
[2020-03-26 14:53] LABS: ABSOLUTE BASOPHILS # (AUTO) 0.1 10^3/uL (0.0-0.2); ABSOLUTE EOSINOPHILS # (AUTO) 0.1 10^3/uL (0.0-0.6); ABSOLUTE LYMPHOCYTES (AUTO) 1.3 10^3/uL (0.5-4.7); ABSOLUTE MONOCYTES (AUTO) 0.7 10^3/uL (0.1-1.4); ABSOLUTE NEUT (AUTO) 3.3 10^3/uL (1.7-8.2); EOSINOPHILS % (AUTO) 2.1 % (0-6); HEMATOCRIT 43.7 % (37.9-51.0); HEMOGLOBIN 14.8 g/dL (13.5-17.0); LYMPHOCYTES % (AUTO) 23.5 % (13-45); MEAN CORPUSCULAR HEMOGLOBIN 31.3 pg (27.0-33.4); MEAN CORPUSCULAR HGB CONC 33.9 g/dL (32.0-36.0); MEAN CORPUSCULAR VOLUME 92 fl (80-97); MONOCYTES % (AUTO) 12.4 % (3-13); PLATELET COUNT 210 10^3/uL (150-450); RED BLOOD COUNT 4.73 10^6/uL (4.35-5.55); RED CELL DISTRIBUTION WIDTH 14.5 % (11.5-14.0); TOTAL CELLS COUNTED % (AUTO) 100 %; WHITE BLOOD COUNT 5.5 10^3/uL (4.0-10.5)
[2020-03-26 14:59] LABS: ALBUMIN 4.1 g/dL (3.5-5.0); ALKALINE PHOSPHATASE 70 U/L (38-126); ANION GAP 8 (5-19); ASPARTATE AMINO TRANSFERASE 26 U/L (17-59); BILIRUBIN,DIRECT 0.2 mg/dL (0.0-0.4); BILIRUBIN,TOTAL 0.6 mg/dL (0.2-1.3); BLOOD UREA NITROGEN 25 mg/dL (7-20); CALCIUM 9.6 mg/dL (8.4-10.2); CARBON DIOXIDE 31 mmol/L (22-30); CHLORIDE 99 mmol/L (98-107); GLUCOSE 156 mg/dL (75-110); POTASSIUM 4.5 mmol/L (3.6-5.0); TOTAL PROTEIN 7.4 g/dL (6.3-8.2)
[2020-03-26 16:59] VITALS: BP 168/75
--- NOTE | 2020-03-26 17:28 | RADIOLOGY REPORT (SQ) ---
EXAM DESCRIPTION: VENOUS UNILATERAL LOWER IMAGES COMPLETED DATE/TIME: 03/26/2020 4:31 pm REASON FOR STUDY: swelling, left leg with erythema COMPARISON: None. TECHNIQUE: Dynamic and static levy scale and color images acquired of the left leg venous system. Se lected spectral images acquired with additional compression and augmentation maneuvers. The contralat eral common femoral vein and saphenofemoral junction were also imaged. Images stored on PACS. LIMITATIONS: None. FINDINGS: COMMON FEMORAL: Normal phasicity, compression and augmentation. No visualized echogenic ma terial on levy scale. No defects on color images. FEMORAL: Normal compression and augmentation. No visualized echogenic material on levy scale. No defe cts on color images. POPLITEAL: Normal compression, augmentation. No visualized echogenic material on levy scale. No defec ts on color images. CALF VESSELS: Normal compression, augmentation. No visualized echogenic material on levy scale. No de fects on color images. GSV and SSV: Normal compression, augmentation. No visualized echogenic material on levy scale. No def ects on color images. ANY DEEP VENOUS INSUFFICIENCY: Not evaluated. ANY EVIDENCE OF POPLITEAL CYST: No. OTHER: No other significant finding. CONTRALATERAL COMMON FEMORAL VEIN AND SAPHENOFEMORAL JUNCTION: Normal phasicity, compression and augmentation. No visualized echogenic material on levy scale. No de fects on color images. IMPRESSION: NO EVIDENCE DVT OR SVT IN THE LEFT LEG. TECHNICAL DOCUMENTATION: JOB ID: [id number] 2010 [employer]- All Rights Reserved Reading location - IP/workstation name: [email or web address]
== END 2020-03-26 17:20 | disposition home or self-care (01) ==
LOC: ER 11:44
DX: R60.0 Localized edema (principal); J44.9 Chronic obstructive pulmonary disease, unspecified; I50.9 Heart failure, unspecified; E11.9 Type 2 diabetes mellitus without complications; I11.0 Hypertensive heart disease with heart failure; Z79.899 Other long term (current) drug therapy; Z87.891 Personal history of nicotine dependence
CPT/HCPCS: 36415; 71046; 80053; 83880; 85025; 93971; 99284